=== PATIENT | female | born 1965 | race Two or more races ===

== ENCOUNTER 2018-09-06 20:00 | Emergency (ER) | payer MEDICAID ==
[~2018-09-06] VITALS: Ht 160 cm; Wt 87.1 kg
[2018-09-06] MEDS ORDERED: cloNIDine HCL 0.1 MG TAB ONE (20:52)
[2018-09-06] MEDS ORDERED: cloNIDine HCL 0.1 MG TAB PO ONE (21:00)
[2018-09-07 01:23] VITALS: BP 157/76
[2018-09-07] MEDS ORDERED: ACETAMINOPHEN/CODEINE#3 (300/30mg) TAB PO ONE (02:30)
== END 2018-09-07 03:08 | disposition home or self-care (01) ==
LOC: ER 20:08
DX: S52.601A Unspecified fracture of lower end of right ulna, initial encounter for closed fracture (principal); R51 Headache; E11.9 Type 2 diabetes mellitus without complications; E78.5 Hyperlipidemia, unspecified; I10 Essential (primary) hypertension; W01.0XXA Fall on same level from slipping, tripping and stumbling without subsequent striking against object, initial encounter; Y93.01 Activity, walking, marching and hiking; Y92.89 Other specified places as the place of occurrence of the external cause; Y99.8 Other external cause status
CPT/HCPCS: 29125; 73090; 73110; 73130

== ENCOUNTER 2018-10-13 12:01 | Emergency (ER) | payer MEDICAID ==
[~2018-10-13] VITALS: Ht 160 cm; Wt 86.2 kg
[2018-10-13 13:20] VITALS: BP 162/80
== END 2018-10-13 13:39 | disposition home or self-care (01) ==
LOC: ER 12:01
DX: S33.5XXA Sprain of ligaments of lumbar spine, initial encounter (principal); M54.2 Cervicalgia; E78.5 Hyperlipidemia, unspecified; I10 Essential (primary) hypertension; E11.9 Type 2 diabetes mellitus without complications; Z88.6 Allergy status to analgesic agent; V43.52XA Car driver injured in collision with other type car in traffic accident, initial encounter; Y93.89 Activity, other specified; Y92.488 Other paved roadways as the place of occurrence of the external cause; Y99.8 Other external cause status
CPT/HCPCS: 72100

== ENCOUNTER 2019-03-08 09:12 | Emergency (ER) | payer MEDICAID ==
[~2019-03-08] VITALS: Ht 160 cm; Wt 86.2 kg
[2019-03-08 09:18] VITALS: BP 120/71
== END 2019-03-08 11:42 | disposition home or self-care (01) ==
LOC: ER 09:12
DX: D17.1 Benign lipomatous neoplasm of skin and subcutaneous tissue of trunk (principal); E11.9 Type 2 diabetes mellitus without complications; E78.5 Hyperlipidemia, unspecified; I10 Essential (primary) hypertension; Z88.8 Allergy status to other drugs, medicaments and biological substances

== ENCOUNTER 2019-03-30 10:28 | Emergency (ER) | payer MEDICAID ==
[~2019-03-30] VITALS: Ht 160 cm; Wt 87.1 kg
[2019-03-30 10:36] VITALS: BP 107/68
[2019-03-30] MEDS ORDERED: LIDOCAINE 1% HCL (LOCAL ANESTH.) INJ 20ML MDV IJ ONE (12:00)
== END 2019-03-30 12:50 | disposition home or self-care (01) ==
LOC: ER 10:28
DX: L02.213 Cutaneous abscess of chest wall (principal); E11.9 Type 2 diabetes mellitus without complications; E78.5 Hyperlipidemia, unspecified; I10 Essential (primary) hypertension; Z88.8 Allergy status to other drugs, medicaments and biological substances
CPT/HCPCS: 10060; 99283; J2001

== ENCOUNTER 2019-04-01 08:27 | Emergency (ER) | payer MEDICAID ==
[~2019-04-01] VITALS: Ht 160 cm; Wt 87.1 kg
[2019-04-01 08:52] VITALS: BP 124/64
== END 2019-04-01 09:58 | disposition home or self-care (01) ==
LOC: ER 08:27
DX: Z48.01 Encounter for change or removal of surgical wound dressing (principal); E11.9 Type 2 diabetes mellitus without complications; E78.5 Hyperlipidemia, unspecified; I10 Essential (primary) hypertension; Z88.8 Allergy status to other drugs, medicaments and biological substances

== ENCOUNTER 2019-04-19 14:36 | Emergency (ER) | payer MEDICAID ==
[~2019-04-19] VITALS: Ht 160 cm; Wt 85.7 kg
[2019-04-19 14:54] VITALS: BP 136/68
== END 2019-04-19 17:57 | disposition home or self-care (01) ==
LOC: ER 14:36
DX: M79.662 Pain in left lower leg (principal); E11.22 Type 2 diabetes mellitus with diabetic chronic kidney disease; I12.9 Hypertensive chronic kidney disease with stage 1 through stage 4 chronic kidney disease, or unspecified chronic kidney disease; N18.9 Chronic kidney disease, unspecified; E78.5 Hyperlipidemia, unspecified
CPT/HCPCS: 93971

== ENCOUNTER 2019-09-11 13:39 | Emergency (ER) | payer MEDICAID ==
[~2019-09-11] VITALS: Ht 160 cm; Wt 81.6 kg
[2019-09-11 16:13] VITALS: BP 132/60
[2019-09-11] MEDS ORDERED: ACETAMINOPHEN/CODEINE#3 (300/30mg) TAB PO ONE (16:30)
== END 2019-09-11 18:33 | disposition home or self-care (01) ==
LOC: ER 13:39
DX: M84.472A Pathological fracture, left ankle, initial encounter for fracture (principal); E11.22 Type 2 diabetes mellitus with diabetic chronic kidney disease; I12.9 Hypertensive chronic kidney disease with stage 1 through stage 4 chronic kidney disease, or unspecified chronic kidney disease; N18.9 Chronic kidney disease, unspecified; I10 Essential (primary) hypertension
CPT/HCPCS: 29515; 73610; 73630; 73700; 93971

== ENCOUNTER 2021-11-11 19:49 | Inpatient (IN) | payer MEDICARE, MEDICAID ==
[~2021-11-11] VITALS: Ht 160 cm; Wt 119.0 kg
[2021-11-11 22:30] LABS: Urine Bacteria FEW /hpf (None Seen); Urine Blood TRACE /uL (Negative); Urine Hyaline Cast FEW /lpf (0 - 2); Urine WBC 1 /hpf (0 - 5)
[2021-11-11 22:46] LABS: Basophils # (auto) 0.1 10 ^3/uL (0-0.2); Eosinophils # (auto) 0.2 10 ^3/uL (0-0.8); Eosinophils % (auto) 3.9 % (0.0-7.0); Hematocrit 34.7 % (36.0-46.0); Hemoglobin 11.3 g/dL (12.2-16.2); Lymphocytes # (auto) 1.4 10 ^3/uL (0.4-5.4); Lymphocytes % (auto) 26.2 % (10.0-50.0); Mean Corpuscular Hemoglobin 30.6 pg (28.0-32.0); Mean Corpuscular Hgb Conc. 32.6 g/dL (32.0-36.0); Mean Corpuscular Volume 93.9 fL (80.0-100.0); Monocytes # (auto) 0.4 10 ^3/uL (0-1.3); Neutrophils # (auto) 3.3 10 ^3/uL (1.6-8.6); Neutrophils % (auto) 60.9 % (37.0-80.0); Nucleated Red Blood Cells % 0.1 %; Red Cell Distribution Width 13.6 % (11.8-14.3); White Blood Cell 5.5 10^3/uL (4.4-10.8)
[2021-11-11 23:01] LABS: BUN/Creatinine Ratio 12.9; Magnesium 2.7 mg/dL (1.6-2.6); Potassium 4.9 mmol/L (3.5-5.1)
[2021-11-11 23:04] LABS: Bilirubin, Total 0.3 mg/dL (0.2-1.0); Total Protein 6.2 g/dL (6.4-8.2)
[2021-11-12] MEDS ORDERED: CALCIUM CARB 500 MG CHEW TAB PO ONE (08:00)
[2021-11-12] MEDS ORDERED: ACETAMINOPHEN 325 MG TAB PO PRN (08:00)
[2021-11-12] MEDS ORDERED: MORPHINE SULFATE INJ 2 MG/ml SYRG IV PRN ×2 (08:00)
[2021-11-12] MEDS ORDERED: NITROGLYCERIN 0.4 MG SL TAB SL PRN (08:00)
[2021-11-12] MEDS ORDERED: ONDANSETRON HCL 4 MG/2 ML VIAL IV PRN (08:00)
[2021-11-12] MEDS ORDERED: DOCUSATE SOD 100 MG CAP PO PRN (08:00)
[2021-11-12] MEDS: B-COMPLEX W/ C & FOLIC ACID(NEPHROVITE TAB) PO SCH ×2 (09:09→22:22)
[2021-11-12] MEDS ORDERED: DEXTROSE (50%) 50ML SYRG IV PRN (10:00)
[2021-11-12 11:04] LABS: Cholesterol 201 mg/dL (< 200)
[2021-11-12 11:07] LABS: HDL Cholesterol 127 mg/dL (40-59); LDL Cholesterol 67 mg/dL (< 100); Triglycerides 116 mg/dL (< 150)
[2021-11-12] MEDS: ACCU-CHEK COMFORT CURVE STRIP VI SCH ×3 (12:02→22:27)
[2021-11-12] MEDS: InsuLIN REG 1unit/0.01ml Soln (100units/ml) SC SCH ×3 (12:02→22:28)
[2021-11-12] MEDS ORDERED: BACLOFEN 10 MG TAB PO PRN (16:30)
[2021-11-12] MEDS: HYDROcodone-ACET 5/325MG TAB PO PRN (19:13)
[2021-11-12] MEDS: hydrALAZINE HCL 25 MG TAB PO PRN (20:06)
[2021-11-13 00:48] VITALS: BP 191/101
[2021-11-13] MEDS: hydrALAZINE HCL 25 MG TAB PO PRN ×2 (02:09→09:01)
[2021-11-13] MEDS: SODIUM BICARBONATE 650 MG TAB PO SCH ×2 (05:11→13:18)
[2021-11-13 05:13] VITALS: BP 190/89
[2021-11-13] MEDS: ACCU-CHEK COMFORT CURVE STRIP VI SCH ×2 (06:07→11:46)
[2021-11-13] MEDS: InsuLIN REG 1unit/0.01ml Soln (100units/ml) SC SCH ×2 (06:08→12:23)
[2021-11-13 07:11] LABS: Basophils # (auto) 0.1 10 ^3/uL (0-0.2); Basophils % (auto) 0.9 % (0.0-2.0); Eosinophils # (auto) 0.3 10 ^3/uL (0-0.8); Eosinophils % (auto) 4.4 % (0.0-7.0); Hematocrit 36.2 % (36.0-46.0); Hemoglobin 11.8 g/dL (12.2-16.2); Lymphocytes # (auto) 1.7 10 ^3/uL (0.4-5.4); Lymphocytes % (auto) 29.9 % (10.0-50.0); Mean Corpuscular Hemoglobin 30.8 pg (28.0-32.0); Mean Corpuscular Hgb Conc. 32.5 g/dL (32.0-36.0); Mean Corpuscular Volume 94.8 fL (80.0-100.0); Monocytes # (auto) 0.4 10 ^3/uL (0-1.3); Monocytes % (auto) 7.7 % (0.0-12.0); Neutrophils # (auto) 3.2 10 ^3/uL (1.6-8.6); Neutrophils % (auto) 57.1 % (37.0-80.0); Red Blood Cells 3.82 10^6/uL (4.0-5.20); Red Cell Distribution Width 13.8 % (11.8-14.3); White Blood Cell 5.7 10^3/uL (4.4-10.8)
[2021-11-13 07:38] LABS: Albumin 2.9 g/dL (3.4-5.0); Calcium 7.7 mg/dL (8.5-10.1)
[2021-11-13 07:42] LABS: BUN/Creatinine Ratio 12.5; Bilirubin, Total 0.2 mg/dL (0.2-1.0); Total Protein 6.3 g/dL (6.4-8.2)
[2021-11-13 08:38] VITALS: BP 173/80
[2021-11-13] MEDS: CALCIUM ACETATE 667 MG CAP PO SCH ×2 (08:59→11:53)
[2021-11-13] MEDS: HYDROcodone-ACET 5/325MG TAB PO PRN (08:59)
[2021-11-13] MEDS: B-COMPLEX W/ C & FOLIC ACID(NEPHROVITE TAB) PO SCH (08:59)
[2021-11-13] MEDS ORDERED: amLODIPine BESYLATE 5 MG TAB PO ONE (09:30)
[2021-11-13] MEDS ORDERED: NITROGLYCERIN 0.2MG/HR TOPICAL PATCH TD SCH (10:00)
[2021-11-13] MEDS ORDERED: LOSARTAN POTASSIUM 25 MG TAB PO SCH (10:00)
[2021-11-13] MEDS ORDERED: NITROGLYCERIN 0.4MG/HR TOPICAL PATCH TD SCH (10:00)
[2021-11-13] MEDS ORDERED: SODIUM ZIRCONIUM CYCL 10 GM PAK PO ONE (11:30)
[2021-11-13] MEDS ORDERED: CALC500C66 PO ×2 (11:38→15:14)
[2021-11-13] MEDS ORDERED: hydrALAZINE HCL 25 MG TAB PO SCH (12:00)
[2021-11-13 12:30] VITALS: BP 154/71
[2021-11-13 14:00] VITALS: BP 154/71
== END 2021-11-13 16:58 | disposition home or self-care (01) | DRG 917 ==
LOC: ER 19:51 → TELE 11-12 08:07 → TELE-WESTW 11-12 23:25
PROVIDERS: ADMIT Family Medicine; ATTEND Student in an Organized Health Care Education/Training Program
DX: T40.2X1A Poisoning by other opioids, accidental (unintentional), initial encounter (principal); G92.9 Unspecified toxic encephalopathy; N18.6 End stage renal disease; E46 Unspecified protein-calorie malnutrition; Z68.42 Body mass index [BMI] 45.0-49.9, adult; I12.0 Hypertensive chronic kidney disease with stage 5 chronic kidney disease or end stage renal disease; R55 Syncope and collapse; Z20.822 Contact with and (suspected) exposure to COVID-19; E88.09 Other disorders of plasma-protein metabolism, not elsewhere classified; E83.39 Other disorders of phosphorus metabolism; E83.42 Hypomagnesemia; E83.51 Hypocalcemia; E10.22 Type 1 diabetes mellitus with diabetic chronic kidney disease; R80.9 Proteinuria, unspecified; E10.65 Type 1 diabetes mellitus with hyperglycemia; E10.40 Type 1 diabetes mellitus with diabetic neuropathy, unspecified; M14.679 Charcot's joint, unspecified ankle and foot; Z79.899 Other long term (current) drug therapy; Z82.49 Family history of ischemic heart disease and other diseases of the circulatory system; Z88.8 Allergy status to other drugs, medicaments and biological substances; Z79.4 Long term (current) use of insulin
CPT/HCPCS: 36415; 70450; 71045; 76775; 80053; 80061; 81001; 82962; 83036; 83735; 83880; 84100; 84443; 84484; 85025; 93005; 93306; 93886; G0378; J1815

== ENCOUNTER 2021-12-22 19:36 | Inpatient (IN) | payer MEDICARE, MEDICAID ==
[~2021-12-22] VITALS: Ht 167.6 cm; Wt 80.5 kg
[~2021-12-22 19:36] MED LIST: CALC500C66 PO
[2021-12-22 21:11] LABS: Basophils # (auto) 0.1 10 ^3/uL (0-0.2); Basophils % (auto) 0.7 % (0.0-2.0); Eosinophils # (auto) 0.1 10 ^3/uL (0-0.8); Eosinophils % (auto) 1.5 % (0.0-7.0); Hematocrit 39.8 % (36.0-46.0); Hemoglobin 13.3 g/dL (12.2-16.2); Lymphocytes # (auto) 1.7 10 ^3/uL (0.4-5.4); Lymphocytes % (auto) 22.2 % (10.0-50.0); Mean Corpuscular Hemoglobin 31.6 pg (28.0-32.0); Mean Corpuscular Hgb Conc. 33.4 g/dL (32.0-36.0); Mean Corpuscular Volume 94.8 fL (80.0-100.0); Monocytes # (auto) 0.4 10 ^3/uL (0-1.3); Monocytes % (auto) 5.7 % (0.0-12.0); Neutrophils # (auto) 5.4 10 ^3/uL (1.6-8.6); Neutrophils % (auto) 69.9 % (37.0-80.0); Nucleated Red Blood Cells % 0.1 %; Red Cell Distribution Width 13.4 % (11.8-14.3); White Blood Cell 7.8 10^3/uL (4.4-10.8)
[2021-12-22 21:22] LABS: Alkaline Phosphatase 109 U/L (45-117); Anion Gap 9 (5-15); Aspartate Aminotransferase 12 U/L (15-37); BUN/Creatinine Ratio 11.7; Bilirubin, Total 0.3 mg/dL (0.2-1.0); Blood Alcohol < 3.0 mg/dL (0-5); Blood Urea Nitrogen 67 mg/dL (7-18); Calcium 7.4 mg/dL (8.5-10.1); Carbon Dioxide 22 mmol/L (21-32); Chloride 115 mmol/L (98-107); GFR African American 10 mL/min; GFR Non-African American 8 mL/min; Glucose 126 mg/dL (74-106); Magnesium 2.5 mg/dL (1.6-2.6); Potassium 4.2 mmol/L (3.5-5.1); Sodium 146 mmol/L (136-145); Total Protein 6.7 g/dL (6.4-8.2)
[2021-12-22 21:30] LABS: INR 0.98 (0.9-1.15); Partial Thromboplastin Time 34.7 sec (24.6-33.4)
[2021-12-22 21:36] LABS: Alanine Aminotransferase 19 U/L (13-56)
[2021-12-22] MEDS ORDERED: hydrALAZINE HCL 20 MG/ML VL IV ONE (22:15)
[2021-12-23] MEDS ORDERED: AZITHROMYCIN 500MG/ 250ML 250 ML IV ONE (01:00)
[2021-12-23] MEDS ORDERED: cefTRIAXone 1GM/50ML D5W 50 ML IV ONE (01:00)
[2021-12-23 05:15] LABS: Urine Bacteria MANY /hpf (None Seen); Urine Blood TRACE /uL (Negative); Urine Mucus FEW (None Seen); Urine Specific Gravity 1.011 (1.001-1.035); Urine WBC 4 /hpf (0 - 5)
[2021-12-23 05:19] LABS: Alcohol, Urine < 3.0 mg/dL (0-10); Amphetamine Screen, Urine NEGATIVE (NEGATIVE); Barbiturate Scree,Urine NEGATIVE (NEGATIVE); Benzodiazephine Screen, Urine NEGATIVE (NEGATIVE); Cannabinoid Screen, Urine NEGATIVE (NEGATIVE); Cocaine Screen, Urine NEGATIVE (NEGATIVE); Opiate Scree,Urine NEGATIVE (NEGATIVE); Phencyclidine Screen, Urine NEGATIVE (NEGATIVE)
[2021-12-23] MEDS ORDERED: DEXTROSE (50%) 50ML SYRG IV PRN (06:15)
[2021-12-23] MEDS ORDERED: ONDANSETRON HCL 4 MG/2 ML VIAL IV PRN (06:15)
[2021-12-23] MEDS: InsuLIN REG 1unit/0.01ml Soln (100units/ml) SC SCH ×4 (06:58→22:51)
[2021-12-23] MEDS: ACCU-CHEK COMFORT CURVE STRIP VI SCH ×4 (06:58→22:00)
[2021-12-23] MEDS: PANTOPRAZOLE 40 MG TAB PO SCH (09:36)
[2021-12-23] MEDS: SERTRALINE HCL 50 MG TAB PO SCH (09:37)
[2021-12-23] MEDS: METOPROLOL TARTRATE 25 MG TAB PO SCH ×2 (09:37→22:45)
[2021-12-23] MEDS ORDERED: MAGNESIUM OXIDE 400 MG TAB PO SCH (10:00)
[2021-12-23] MEDS ORDERED: LOSARTAN POTASSIUM 50 MG TAB PO SCH (10:00)
[2021-12-23] MEDS ORDERED: SOD CHL 0.45% 1,000 ML IV SCH (13:00)
[2021-12-23] MEDS: cloNIDine HCL 0.1 MG TAB PO PRN (14:11)
[2021-12-23 14:42] LABS: Protein, Urine 581.3 mg/dL (0.0-11.9)
[2021-12-23] MEDS ORDERED: CALCIUM CARB 500 MG CHEW TAB PO ONE (16:30)
[2021-12-23] MEDS ORDERED: FUROSEMIDE 40 MG TAB PO ONE (16:30)
[2021-12-23] MEDS ORDERED: FUROSEMIDE 100 MG/10ML VIAL IV SCH (18:00)
[2021-12-23] MEDS: ACETAMINOPHEN 325 MG TAB PO PRN (20:50)
[2021-12-23] MEDS: CALCIUM CARB 500 MG CHEW TAB PO SCH (22:51)
[2021-12-24] MEDS: cloNIDine HCL 0.1 MG TAB PO PRN ×2 (01:56→04:29)
[2021-12-24] MEDS ORDERED: hydrALAZINE HCL 20 MG/ML VL IV ONE (03:30)
[2021-12-24 03:45] LABS: Basophils # (auto) 0.1 10 ^3/uL (0-0.2); Basophils % (auto) 1.1 % (0.0-2.0); Eosinophils # (auto) 0.2 10 ^3/uL (0-0.8); Eosinophils % (auto) 2.7 % (0.0-7.0); Hematocrit 34.4 % (36.0-46.0); Hemoglobin 11.6 g/dL (12.2-16.2); Lymphocytes # (auto) 2.4 10 ^3/uL (0.4-5.4); Lymphocytes % (auto) 27.7 % (10.0-50.0); Mean Corpuscular Hemoglobin 31.6 pg (28.0-32.0); Mean Corpuscular Hgb Conc. 33.7 g/dL (32.0-36.0); Mean Corpuscular Volume 93.8 fL (80.0-100.0); Monocytes # (auto) 0.7 10 ^3/uL (0-1.3); Monocytes % (auto) 7.6 % (0.0-12.0); Neutrophils # (auto) 5.3 10 ^3/uL (1.6-8.6); Neutrophils % (auto) 60.9 % (37.0-80.0); Red Blood Cells 3.67 10^6/uL (4.0-5.20); White Blood Cell 8.6 10^3/uL (4.4-10.8)
[2021-12-24 03:58] LABS: Albumin 2.6 g/dL (3.4-5.0); Calcium 7.5 mg/dL (8.5-10.1); Potassium 4.2 mmol/L (3.5-5.1)
[2021-12-24 04:00] LABS: BUN/Creatinine Ratio 10.9
[2021-12-24] MEDS ORDERED: cefTRIAXone 1GM/50ML D5W 50 ML IV SCH (04:00)
[2021-12-24 04:03] LABS: Bilirubin, Total 0.4 mg/dL (0.2-1.0); Total Protein 6.3 g/dL (6.4-8.2)
[2021-12-24 04:18] VITALS: BP 168/79
[2021-12-24] MEDS: ACETAMINOPHEN 325 MG TAB PO PRN (04:29)
[2021-12-24] MEDS ORDERED: LOVA20TA4 PO (04:53)
[2021-12-24] MEDS ORDERED: HYDR25TA4 PO (04:53)
[2021-12-24] MEDS ORDERED: GABA300C PO (04:53)
[2021-12-24] MEDS ORDERED: ZOLP5TAB5 PO (04:53)
[2021-12-24] MEDS ORDERED: TRAM50TA2 PO (04:53)
[2021-12-24 05:00] VITALS: BP 149/74
[2021-12-24] MEDS: InsuLIN REG 1unit/0.01ml Soln (100units/ml) SC SCH ×4 (06:09→17:41)
[2021-12-24] MEDS: ACCU-CHEK COMFORT CURVE STRIP VI SCH ×4 (06:13→17:36)
[2021-12-24 06:32] LABS: Urine Bacteria MOD /hpf (None Seen); Urine Blood 1+ /uL (Negative); Urine Specific Gravity 1.009 (1.001-1.035); Urine WBC 23 /hpf (0 - 5)
[2021-12-24 08:25] VITALS: BP 143/65
[2021-12-24] MEDS ORDERED: FUROSEMIDE 40 MG TAB PO SCH (10:00)
[2021-12-24] MEDS: SERTRALINE HCL 50 MG TAB PO SCH (10:36)
[2021-12-24] MEDS: PANTOPRAZOLE 40 MG TAB PO SCH (10:37)
[2021-12-24] MEDS: METOPROLOL TARTRATE 25 MG TAB PO SCH (10:37)
[2021-12-24] MEDS: CALCIUM CARB 500 MG CHEW TAB PO SCH (10:37)
[2021-12-24 12:33] VITALS: BP 135/61
[2021-12-24 16:28] VITALS: BP 148/68
[2021-12-25 11:05] LABS: Hepatitis C Antibody Negative (Negative)
== END 2021-12-24 18:37 | disposition home or self-care (01) | DRG 91 ==
LOC: EDBD 19:36 → ER 19:39 → OVERFLOW 12-23 06:01 → WEST WING 12-24 04:00
PROVIDERS: ADMIT Nurse Practitioner; ATTEND Student in an Organized Health Care Education/Training Program
DX: G92.8 Other toxic encephalopathy (principal); E43 Unspecified severe protein-calorie malnutrition; E87.0 Hyperosmolality and hypernatremia; N39.0 Urinary tract infection, site not specified; N17.9 Acute kidney failure, unspecified; N18.4 Chronic kidney disease, stage 4 (severe); I67.4 Hypertensive encephalopathy; T40.425A Adverse effect of tramadol, initial encounter; D63.1 Anemia in chronic kidney disease; E11.649 Type 2 diabetes mellitus with hypoglycemia without coma; E11.65 Type 2 diabetes mellitus with hyperglycemia; Z20.822 Contact with and (suspected) exposure to COVID-19; E11.22 Type 2 diabetes mellitus with diabetic chronic kidney disease; E11.40 Type 2 diabetes mellitus with diabetic neuropathy, unspecified; E11.610 Type 2 diabetes mellitus with diabetic neuropathic arthropathy; E78.5 Hyperlipidemia, unspecified; R09.89 Other specified symptoms and signs involving the circulatory and respiratory systems; E87.8 Other disorders of electrolyte and fluid balance, not elsewhere classified; I12.9 Hypertensive chronic kidney disease with stage 1 through stage 4 chronic kidney disease, or unspecified chronic kidney disease; I16.0 Hypertensive urgency; Z68.28 Body mass index [BMI] 28.0-28.9, adult; Z88.5 Allergy status to narcotic agent; Z88.8 Allergy status to other drugs, medicaments and biological substances; Z82.49 Family history of ischemic heart disease and other diseases of the circulatory system; Z79.899 Other long term (current) drug therapy
CPT/HCPCS: 36415; 36600; 70450; 71045; 74176; 76775; 80053; 80307; 80320; 81001; 82306; 82570; 82805; 82962; 83605; 83735; 83880; 83935; 83970; 84156; 84300; 84484; 85025; 85610; 85730; 86803; 87040; 87340; 87426; 87804; 93005; 96365; 96366; 96368; 96375; G0378; J0696; J1815

== ENCOUNTER 2024-06-08 13:15 | Emergency (ER) | payer MEDICAID, MEDICARE, OTHER ==
[~2024-06-08] VITALS: Ht 160 cm; Wt 74.3 kg
[~2024-06-08 13:15] MED LIST changes: +GABA300C PO; +HYDR25TA4 PO; +LOVA20TA4 PO; +TRAM50TA2 PO; +ZOLP5TAB5 PO
--- NOTE | 2024-06-08 14:16 | DVH ---
EXAM: XY R KNEE 3V XRAY CLINICAL INDICATION: FSLL INJURY TECHNIQUE: XY R KNEE 3V XRAY Comparison: None FINDINGS/IMPRESSION: Nondisplaced inferior patellar pole fracture. Moderate joint effusion. diffuse soft tissue swelling
--- NOTE | 2024-06-08 15:00 | ED.PDOC ---
Musculoskeletal HPI Comments A 58 YEAR OLD FEMALE PRESENTS TO THE ED WITH CHIEF COMPLAINT OF RIGHT KNEE PAIN S/P FALL. PATIENT REPORTS THAT SHE WAS GETTING OUT OF HER BATHROOM EARLIER TODAY WHEN SHE HAD ACCIDENTALLY TRIPPED OVER A BOX, CAUSING HER TO LAND ON HER RIGHT KNEE ON THE [place]. PATIENT RELAYS THAT THERE IS NOW PAIN WITH ASSOCIATE D SWELLING TO HER RIGHT KNEE. PATIENT DENIES ANY HEAD INJURY, N/V, NUMBNESS, OR WEAKNESS.NO OTHER SYMPTOMS REPORTED AT THIS TIME OF CARE. Chief Complaint: Lower Extremity Time Seen by MD: 14:52 Primary Care Provider: ALLYSON Reviewed Notes: Nurses Notes, Medications, Allergies Allergies: Coded Allergies: Codeine (Verified Allergy, Unknown, 12/22/21) Lisinopril (Verified Allergy, Unknown, 10/13/18) Home Meds Active Scripts Indomethacin (Indomethacin) 50 Mg Cap, 1 CAP PO TID, #30 CAP Prov:MATHEW YEN 06/08/24 Ciprofloxacin Hcl (Cipro) 500 Mg Tab, 1 TAB PO BID, #20 TAB Prov:MATHEW YEN 06/08/24 Calcium Carbonate (Calcium Carbonate) 500 Mg Chw, 500 MG PO BID for 30 Days, #60 TAB.CHEW Prov:JOE CORRAL MD 11/13/21 Reported Medications Zolpidem Tartrate (Zolpidem Tartrate) 5 Mg Tab, 1 TAB PO QPM, #30 TAB 2 Refills 12/24/21 Gabapentin (Neurontin) 300 Mg Cap, 1 CAP PO BID, #90 CAP 3 Refills 12/24/21 Hydrochlorothiazide (Hydrochlorothiazide) 25 Mg Tab, 25 MG PO DAILY for 30 Days, MG 12/24/21 Tramadol Hcl (Tramadol Hcl) 50 Mg Tab, 50 MG PO DAILY PRN for MODERATE PAIN (4-6 PAIN SCALE), MG 12/24/21 Lovastatin (Lovastatin) 20 Mg Tab, 1 TAB PO DAILY, #30 TAB 5 Refills 12/24/21 Information Source: Patient Mode of Arrival: Ambulatory Location: Right Extremity Location: Knee Timing: Hours Prehospital treatment: None Severity: Moderate Able to Move Extremity: No Bear Weight: Limited Pain: Moderate Mechanism: Blunt Trauma Circumstances: Fall Onset of Symptoms: After Trauma Symptoms: Swelling, Pain DVT Risk Factors: NONE Last Tetanus: UTD Associated signs and symptoms: Knee pain Past Medical History PAST MEDICAL HISTORY: CKF, DM, High Lipids, HTN Surgical History: , Tonsillectomy 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 History Family History Family History: Family hx of HTN Social History Smoker: Non-Smoker Alcohol: Rarely Drugs: Denies Drug Use Lives In: Home Constitutional: denies: chills, diaphoresis, fatigue, fever, malaise, sweats, weakness, others EENTM: denies: blurred vision, double vision, ear bleeding, ear discharge, ear drainage, ear pain, ear ringing, eye pain, eye redness, hearing loss, mouth pain, mouth swelling, nasal discharge, nose bleeding, nose congestion, nose pain, photophobia, tearing, throat pain, throat swelling, voice changes, others Respiratory: denies: cough, hemoptysis, orthopnea, SOB at rest, shortness of breath, SOB with excertion, stridor, wheezing, others Cardiovascular: denies: chest pain, dizzy spells, diaphoresis, Dyspnea on e xertion, edema, irregular heart beat, left arm pain, lightheadedness, palpitations, PND, syncope, others Gastrointestinal: denies: abdomen distended, abdominal pain, blood streaked bowels, constipated, diarrhea, dysphagia, difficulty swallowing, hematemesis, melena, nausea, poor appetite, poor fluid intake, rectal bleeding, rectal pain, vomiting, others Genitourinary: denies: abnormal vagina bleeding, burning, dyspareunia, dysuria, flank pain, frequency, hematuria, incontinence, pain, , vagina discharge, urgency, others Neurological: denies: dizziness, fainting, headache, left sided numbness, left sided weakness, numbness, paresthesia, pre-existing deficit, right sided numbness, right sided weakness, seizure, speech problems, tingling, tremors, weakness, others Musculoskeletal: reports: joint pain, joint swelling, others (RT KNEE PAIN); denies: back pain, gout, muscle pain, muscle stiffness, neck pain Integumetry: denies: bruises, change in color, change in hair/nails, dryness, laceration, lesions, lumps, rash, wounds, others Allergic/Immunocompromised: denies: Difficulty Healing, Frequent Infections, Hives, Itching, others Hematologic/Lymphatic: denies: anemia, blood clots, easy bleeding, easy bruising, swollen glands, others Endocrine: denies: excessive hunger, excessive sweating, excessive thirst, excessive urination, flushing, intolerance to cold, intolerance to heat, unexplained weight gain, unexplained weight loss, others Psychiatric: denies: anxiety, bipolar disorder, depression, hopeless, panic disorder, schizophrenia, sleepless, suicidal, others All Other Systems: Reviewed and Negative Physical Exam General Appearance: No Apparent Distress, Normal HEENT: Normal ENT Inspection, PERRL/EOMI Neck: Full Range of Motion, Non-Tender, Normal, Normal Inspection Respiratory: Chest Non-Tender, Lungs Clear, No Accessory Muscle Use, No Respiratory Distress, Normal Breath Sounds Cardiovascular: No Edema, No JVD, No Murmur, No Gallop, Normal Peripheral Pulses, Regular Rate/Rhythm Breast Exam: Deferred Gastrointestinal: No Organomegaly, Non Tender, No Pulsatile Mass, Normal Bowel Sounds, Soft Genitalia: Deferred Pelvic: Deferred Rectal: Deferred Extremities: Decreased range of motion, No calf tenderness, Normal capillary refill, No pedal edema, Swelling (BONY TENDERNESS AND SWELLING ON RIGHT ANTERIOR KNEE, NO DEFORMITY. ), Tender (AND SWELLING ON RIGHT ANTERIOR KNEE, NO OPEN WOUND AND DEFORMITY. ) Musculoskeletal : Apperance: Normal Neurologic: Alert, art department head II-XII nml as Tested, No Motor Deficits, Normal Affect, Normal Mood, No Sensory Deficits Cerebellar Function: Normal Reflexes: Normal Skin: Dry, Normal Color, Warm Peripheral Pulses: 2+ carotid (R), 2+ carotid (L), 2+ dorsalis pedis (R), 2+ dorsalis pedis (L) Lymphatic: No Adenopathy Was a procedure done? Was a procedure done?: No Differential Diagnosis EXT Differential Diagnosis: Fracture, Sprain, Dislocation, Contusion, Strain, Bursitis X-Ray, Labs, Meds, VS Vital Signs Date Time Temp Pulse Resp B/P (MAP) Pulse Ox O2 Delivery O2 Flow Rate FiO2 06/08/24 13:25 98.0 81 18 147/73 (97) 96 98.0 Current Medications Medications (Trade) Dose Ordered Sig/Altagracia Route Start Time Stop Time Status Last Admin Acetaminophen/ Hydrocodone Bitart (B[place]er 5/325MG Tab) 1 tab ONCE ONCE PO 06/08/24 15:00 06/08/24 15:01 DC 06/08/24 15:07 PATIENT: KAT LANGLEYCT: [id number]: [id number] : 1965 LOC: ER ROOM / BED: / AGE / SEX: 58 / F ADM STATUS: REG ER SERVICE 1339 ORDERING PHYSICIAN: MATHEW YEN PROCEDURE(s): RKN3 - R KNEE 3V XRAY REASON: FSLL INJURY ORDER NUMBER(s): [id number], ACCESSION NUMBER(s): [id number] EXAM: XY R KNEE 3V XRAY CLINICAL INDICATION: FSLL INJURY TECHNIQUE: XY R KNEE 3V XRAY Comparison: None FINDINGS/IMPRESSION: Nondisplaced inferior patellar pole fracture. Moderate joint effusion. diffuse soft tissue swelling ATED BY: STEVEN RECINOS MD DICTATED DATE/TIME: 06/08/241413 SIGNED BY: STEVEN RECINOS MD SIGNED DATE/TIME: 06/08/24 141 X-Ray, Labs, Meds, VS Comment EXTERNAL MEDICAL RECORDS REVIEWED: [NONE] INDEPENDENT HISTORIANS: [NONE] SOCIAL DETERMINANTS OF HEALTH: [NONE] LABS ORDERED: NONE REVIEWED AND INTERPRETED RESULTS: RT KNEE XR IMAGING ORDERED: RT KNEE XR TREATMENTS ORDERED: NORCO 5/325 PO AND RIGHT KNEE IMMOBILIZATION AND CRUTCHES PROCEDURES PERFORMED: NONE CRITICAL CARE TIME: NONE I HAVE DISCUSSED THE PATIENT WITH THE ATTENDING PHYSICIAN DR. GALLO AND HE AGREES WITH THE PATIENT'S PLAN OF CARE AND DISPOSITION. BASED ON HISTORY OF PRESENT ILLNESS, AND PHYSICAL EXAM, PATIENT WILL BE DISCHARGED HOME. DISCUSSED PLAN FOR DISCHARGE HOME. SHARED DECISION MAKING: DISCUSSED WITH PATIENT THAT THEIR WORKUP WAS NORMAL. PATIENT INSTRUCTED TO FOLLOW UP WITH PRIMARY CARE PROVIDER IN 1-2 DAYS FOR RE- EVALUATION OF SYMPTOMS. PATIENT VERBALIZES UNDERSTANDING TO RETURN TO ED FOR NEW OR WORSENING SYMPTOMS OR IF FOLLOW UP WITH PCP CANNOT BE OBTAINED. PATIENT FEELS COMFORTABLE GOING HOME AT THIS TIME. ALL QUESTIONS ADDRESSED AT TIME OF DISCHARGE. Time of 1ST Reevaluation: 15:20 Reevaluation 1ST: Improved Patient Education/Counseling: Diagnosis, Treatment, Need For Follow Up Family Education/Counseling: Diagnosis, Treatment, Need For Follow Up Medical Screening: No EMC Exist At This Time Departure 1 Departure Time of Disposition: 15:30 Impression: Primary Impression: Right patella fracture Qualified Codes: S82.034A - Nondisplaced transverse fracture of right patella, initial encounter for closed fracture Disposition: 01 HOME / SELF CARE / HOMELESS Condition: Stable Additional Instructions: F/U ORTHOPEDIST IN 2 DAYS RECHECK. IF CONDITION BECOME WORSE, RETURN TO ED TERRI. Discharged With: Self, Relative Critical Care Note Critical Care Time?: No Stability Stability form required: No Heart Score Heart Score: Heart Score Response (Comments) Value History N/A 0 EKG N/A 0 Age N/A 0 Risk Factors N/A 0 Troponin N/A 0 Total 0 I personally scribed for MATHEW YEN ([email or web address]) on 06/08/24 at 15:00. Electronically submitted by Vahe Hobbs ([email or web address]). MATHEW YEN June 08, 2024 15:00
[2024-06-08] MEDS: HYDROcodone-ACET 5/325MG TAB PO ONE (15:07)
[2024-06-08] MEDS ORDERED: CIPR-173 PO (15:13)
[2024-06-08] MEDS ORDERED: INDO50CA82 PO (15:13)
[2024-06-08 15:18] VITALS: BP 140/76; PULSE 80; RESP 18; TEMP 98.1; O2SAT 97
== END 2024-06-08 15:20 | disposition home or self-care (01) ==
LOC: ER 13:38
DX: S82.001A Unspecified fracture of right patella, initial encounter for closed fracture (principal); M25.561 Pain in right knee; E11.22 Type 2 diabetes mellitus with diabetic chronic kidney disease; I12.9 Hypertensive chronic kidney disease with stage 1 through stage 4 chronic kidney disease, or unspecified chronic kidney disease; N18.9 Chronic kidney disease, unspecified; E78.5 Hyperlipidemia, unspecified; Z79.899 Other long term (current) drug therapy; Z90.89 Acquired absence of other organs; Z98.890 Other specified postprocedural states; Z88.8 Allergy status to other drugs, medicaments and biological substances; Z88.5 Allergy status to narcotic agent; W18.09XA Striking against other object with subsequent fall, initial encounter; Y93.89 Activity, other specified; Y92.89 Other specified places as the place of occurrence of the external cause; Y99.8 Other external cause status
CPT/HCPCS: 73562

== ENCOUNTER 2024-09-27 13:41 | Inpatient (IN) | payer OTHER ==
[~2024-09-27] VITALS: Ht 165.1 cm; Wt 72.8 kg
[2024-09-27 14:11] VITALS: PULSE 72; RESP 10; O2SAT 96
--- NOTE | 2024-09-27 14:31 | ED.PDOC ---
History of Present Illness HPI Comments 58-year-old female with PMHx HTN brought in by EMS presents with a chief complaint of HTN, headache, and ear ringing. Patient states that she was getting dialysis today and staff called 911 due to patient having a blood pressure reading that was in the 200s. Patient states that she finished dialysis and was given Clonidine 0.2mg. Patient states that she gets headaches like this weekly due to her high blood pressure. Chief Complaint: Headache Time Seen by MD: 14: Primary Care Provider: MARCO ANTONIO Reviewed Notes: Medications, Allergies Allergies: Coded Allergies: Codeine (Verified Allergy, Unknown, 12/22/21) Lisinopril (Verified Allergy, Unknown, 10/13/18) Home Meds Active Scripts Calcium Carbonate (Calcium Carbonate) 500 Mg Chw, 500 MG PO BID for 30 Days, #60 TAB.CHEW Prov:JOE CORRAL MD 11/13/21 Reported Medications Zolpidem Tartrate (Zolpidem Tartrate) 5 Mg Tab, 1 TAB PO QPM, #30 TAB 2 Refills 12/24/21 Gabapentin (Neurontin) 300 Mg Cap, 1 CAP PO BID, #90 CAP 3 Refills 12/24/21 Hydrochlorothiazide (Hydrochlorothiazide) 25 Mg Tab, 25 MG PO DAILY for 30 Days, MG 12/24/21 Tramadol Hcl (Tramadol Hcl) 50 Mg Tab, 50 MG PO DAILY PRN for MODERATE PAIN (4-6 PAIN SCALE), MG 12/24/21 Lovastatin (Lovastatin) 20 Mg Tab, 1 TAB PO DAILY, #30 TAB 5 Refills 12/24/21 Information Source: Patient Mode of Arrival: EMS Severity: Moderate Timing: Days Duration: Intermittent 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 Past Medical History PAST MEDICAL HISTORY: CKF, DM, High Lipids, HTN Surgical History: , Tonsillectomy BRUISE TRIMMER History: No Pertinent BRUISE TRIMMER History Family History Family History: Family hx of HTN Social History Smoker: Non-Smoker Alcohol: Rarely Drugs: Denies Drug Use Lives In: Home Constitutional: denies: chills, diaphoresis, fatigue, fever, malaise, sweats, weakness, others EENTM: reports: ear ringing; denies: blurred vision, double vision, ear bleeding, ear discharge, ear drainage, ear pain, eye pain, eye redness, hearing loss, mouth pain, mouth swelling, nasal discharge, nose bleeding, nose congestion, nose pain, photophobia, tearing, throat pain, throat swelling, voice changes, others Respiratory: denies: cough, hemoptysis, orthopnea, SOB at rest, shortness of breath, SOB with excertion, stridor, wheezing, others Cardiovascular: denies: chest pain, dizzy spells, diaphoresis, Dyspnea on exertion, edema, irregular heart beat, left arm pain, lightheadedness, palpitations, PND, syncope, others Gastrointestinal: denies: abdomen distended, abdominal pain, blood streaked bowels, constipated, diarrhea, dysphagia, difficulty swallowing, hematemesis, melena, nausea, poor appetite, poor fluid intake, rectal bleeding, rectal pain, vomiting, others Genitourinary: denies: abnormal vagina bleeding, burning, dyspareunia, dysuria, flank pain, frequency, hematuria, incontinence, pain, , vagina discharge, urgency, others Neurological: reports: headache; denies: dizziness, fainting, left sided numbness, left sided weakness, numbness, paresthesia, pre-existing deficit, right sided numbness, right sided weakness, seizure, speech problems, tingling, tremors, weakness, others Musculoskeletal: denies: back pain, gout, joint pain, joint swelling, muscle pain, muscle stiffness, neck pain, others Integumetry: denies: bruises, change in color, change in hair/nails, dryness, laceration, lesions, lumps, rash, wounds, others Allergic/Immunocompromised: denies: Difficulty Healing, Frequent Infections, Hives, Itching, others Hematologic/Lymphatic: denies: anemia, blood clots, easy bleeding, easy bruising, swollen glands, others Endocrine: denies: excessive hunger, excessive sweating, excessive thirst, excessive urination, flushing, intolerance to cold, intolerance to heat, unexplained weight gain, unexplained weight loss, others Psychiatric: denies: anxiety, bipolar disorder, depression, hopeless, panic disorder, schizophrenia, sleepless, suicidal, others All Other Systems: Reviewed and Negative Physical Exam General Appearance: No Apparent Distress, Normal HEENT: Normal ENT Inspection, Pharynx Normal, TMs Normal Neck: Full Range of Motion, Non-Tender, Normal, Normal Inspection Respiratory: Chest Non-Tender, Lungs Clear, No Accessory Muscle Use, No Respiratory Distress, Normal Breath Sounds Cardiovascular: No Edema, No JVD, No Murmur, No Gallop, Normal Peripheral Pulses, Regular Rate/Rhythm Breast Exam: Deferred Gastrointestinal: No Organomegaly, Non Tender, No Pulsatile Mass, Normal Bowel Sounds, Soft Genitalia: Deferred Pelvic: Deferred Rectal: Deferred Extremities: No calf tenderness, Normal capillary refill, Normal inspection, Normal range of motion, Non-tender, No pedal edema Musculoskeletal : Apperance: Normal Neurologic: 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 Was a procedure done?: No Differential Dx Considerations may include: Differential diagnosis includes hypertensive emergency, intracranial bleed, intracranial mass, primary headache disorder. Medication noncompliance. The workup is unremarkable in terms of the CAT scan on physical exam patient is awake and alert not encephalopathic however her blood pressure remains to be elevated in the 200 range. Patient will be admitted for further treatment to lower her blood pressure and further observation for the hyper seven hypertensive emergency X-Ray, Labs, Meds, VS Vital Signs Date Time Temp Pulse Resp B/P (MAP) Pulse Ox O2 Delivery O2 Flow Rate FiO2 09/27/24 20:45 68 10 155/65 (95) 94 09/27/24 20:30 69 11 156/68 (97) 09/27/24 20:15 69 8 166/63 (97) 97 09/27/24 20:00 69 10 182/73 (109) 96 09/27/24 19:30 71 11 96 Room Air* 0 21 09/27/24 19:30 99.1 71 11 186/104 (131) 96 99.1 09/27/24 19:30 71 186/104 09/27/24 19:00 71 14 189/77 (114) 97 09/27/24 18:45 70 9 182/76 (111) 93 09/27/24 18:30 71 18 184/77 (112) 95 09/27/24 18:15 71 10 176/64 (101) 95 09/27/24 18:00 72 10 176/64 (101) 96 09/27/24 17:45 72 16 193/75 (114) 98 8/20/25 17:30 72 12 203/79 (120) 98 09/27/24 17:15 72 15 214/ (130) 97 09/27/24 17:00 73 16 (128) 97 09/27/24 16:50 73 16 210/ (128) 97 09/27/24 16:35 74 12 209/ (128) 96 09/27/24 16:30 74 09/27/24 16:20 74 14 216/ (130) 97 09/27/24 16:05 98.5 76 15 219/94 (135) 97 98.5 09/27/24 16:00 78 09/27/24 16:00 78 09/27/24 15:44 80 207/09/27/24 15:21 77 11 / (127) 98 09/27/24 14:12 98.8 73 18 196/79 98 98.8 09/27/24 14:11 72 10 96 Room Air* 0 21 09/27/24 14:11 98.2 64 14 216/ (128) 96 98.2 Lab Test 09/27/24 17:25 09/27/24 15:17 09/27/24 14:06 Range/Units Troponin I High Sensitivity 37 *H 36 *H 33 </=34 ng/L Sodium Level 137 136-145 mmol/L Potassium Level 3.9 3.5-5.1 mmol/L Chloride Level 99 98-107 mmol/L Carbon Dioxide Level 28 20-31 mmol/L Anion Gap 10 5-15 Blood Urea Nitrogen 13 9-23 mg/dL Creatinine 4.75 H 0.550-1.02 mg/dL Glomerular Filtration Rate Calc 10 >90 mL/min BUN/Creatinine Ratio 2.7 L 10.0-20.0 Serum Glucose 105 74-106 mg/dL Calcium Level 8.0 L 8.7-10.4 mg/dL White Blood Count 3.8 L 4.4-10.8 10^3/uL Red Blood Count 2.77 L 4.0-5.20 10^6/uL Hemoglobin 9.7 L 12.2-16.2 g/dL Hematocrit 28.0 L 36.0-46.0 % Mean Corpuscular Volume 100.9 H 80.0-100.0 fL Mean Corpuscular Hemoglobin 34.8 H 28.0-32.0 pg Mean Corpuscular Hemoglobin Concent 34.5 32.0-36.0 g/dL Red Cell Distribution Width 15.6 H 11.8-14.3 % Platelet Count 156 140-450 10^3/uL Mean Platelet Volume 10.3 6.9-10.8 fL Neutrophils (%) (Auto) 71.7 37.0-80.0 % Lymphocytes (%) (Auto) 15.1 10.0-50.0 % Monocytes (%) (Auto) 10.2 0.0-12.0 % Eosinophils (%) (Auto) 1.9 0.0-7.0 % Basophils (%) (Auto) 1.1 0.0-2.0 % Neutrophils # (Auto) 2.7 1.6-8.6 10 ^3/uL Lymphocytes # (Auto) 0.6 0.4-5.4 10 ^3/uL Monocytes # (Auto) 0.4 0-1.3 10 ^3/uL Eosinophils # (Auto) 0.1 0-0.8 10 ^3/uL Basophils # (Auto) 0 0-0.2 10 ^3/uL Nucleated Red Blood Cells 0.0 % Current Medications Medications (Trade) Dose Ordered Sig/Altagracia Route Start Time Stop Time Status Last Admin Labetalol HCl 250 mg/Sodium Chloride 250 ml @ 60 mls/hr Q4H10M ONCE IV 09/27/24 14:30 09/27/24 18:39 DC 09/27/24 15:44 Acetaminophen/ Hydrocodone Bitart ([place] 5/325MG Tab) 1 tab ONCE ONCE PO 09/27/24 14:30 09/27/24 14:31 DC 09/27/24 15:00 Labetalol HCl 250 mg/Sodium Chloride 250 ml @ 60 mls/hr Q4H10M ONCE IV 09/27/24 19:30 09/27/24 23:39 09/27/24 19:30 Time of 1ST Reevaluation: 14:52 Reevaluation 1ST: Unchanged Time of 2ND Reevaluation: 17:32 Reevaluation 2ND: Improved Patient Education/Counseling: Diagnosis, Treatment, Prognosis, Need For Follow Up Family Education/Counseling: No Family Present Medical Screening: No EMC Exist At This Time SEPSIS Sepsis Screen Date sepsis recognized/suspect: Sep 27, 2024 Time Sepsis recognized/suspect: 1345 Recent Procedure: No On Antibiotic Therapy: No Respiratory Rate >20: No Heart Rate >90: No Temp<36 C (96.8 F) or >38.3 C: No SBP <90 or MAP <65 mmHG: No New Acute Mental Status Change: No Is the patient on CPAP, BIPAP,: No Physician Orders Continuous Ekg Monitoring 08,12,16,20,00,04 (09/27/24 14:27) Chest Xray 1 View (09/27/24 14:27) Head Without Contrast (09/27/24 14:27) Electrocardigram (09/27/24 15:27) Electrocardigram (09/27/24 17:27) Sodium Chl 0.9% (Ns... W/Labetalol Injec (09/27/24 19:30) Vital Signs Date Time Temp Pulse Resp B/P (MAP) Pulse Ox O2 Delivery O2 Flow Rate FiO2 09/27/24 20:45 68 10 155/65 (95) 94 09/27/24 20:30 69 11 156/68 (97) 09/27/24 20:15 69 8 166/63 (97) 97 09/27/24 20:00 69 10 182/73 (109) 96 09/27/24 19:30 71 11 96 Room Air* 0 21 09/27/24 19:30 99.1 71 11 186/104 (131) 96 99.1 09/27/24 19:30 71 186/104 09/27/24 19:00 71 14 189/77 (114) 97 09/27/24 18:45 70 9 182/76 (111) 93 09/27/24 18:30 71 18 184/77 (112) 95 09/27/24 18:15 71 10 176/64 (101) 95 09/27/24 18:00 72 10 176/64 (101) 96 09/27/24 17:45 72 16 193/75 (114) 98 09/27/24 17:30 72 12 203/79 (120) 98 09/27/24 17:15 72 15 214/88 (130) 97 09/27/24 17:00 73 16 210/88 (128) 97 09/27/24 16:50 73 16 210/88 (128) 97 09/27/24 16:35 74 12 209/ (128) 96 09/27/24 16:30 74 09/27/24 16:20 74 14 216/ (130) 97 09/27/24 16:05 98.5 76 15 219/94 (135) 97 98.5 09/27/24 16:00 78 09/27/24 16:00 78 09/27/24 15:44 80 207/87 09/27/24 15:21 77 11 / (127) 98 09/27/24 14:12 98.8 73 18 196/79 98 98.8 09/27/24 14:11 72 10 96 Room Air* 0 21 09/27/24 14:11 98.2 64 14 216/ (128) 96 98.2 Laboratory Tests Test 09/27/24 14:06 White Blood Count 3.8 10^3/uL (4.4-10.8) L Medications Medications Dose Ordered Sig/Altagracia Route Start Time Stop Time Status Last Admin Dose Admin Acetaminophen/ Hydrocodone Bitart 1 tab ONCE ONCE PO 09/27/24 14:30 09/27/24 14:31 DC 09/27/24 15:00 Labetalol HCl 250 mg/Sodium Chloride 250 ml @ 60 mls/hr Q4H10M ONCE IV 09/27/24 14:30 09/27/24 18:39 DC 09/27/24 15:44 Labetalol HCl 250 mg/Sodium Chloride 250 ml @ 60 mls/hr Q4H10M ONCE IV 09/27/24 19:30 09/27/24 23:39 09/27/24 19:30 Departure 1 Departure Time of Disposition: 17:32 Impression: Primary Impression: Hypertensive crisis Additional Impression: End stage kidney disease Disposition: 09 ADMITTED INPATIENT Admit to: ICU Condition: Serious Discharged With: Self Critical Care Note Critical Care Time?: Yes (55 min-critical care time only) Critical care comment: Due to concerns for patients condition deteriorating, the care required my highest level of attention and readiness to intervene. I assessed the patient, reviewed the medical records, ordered the appropriate tests and treatments, then reassessed for results and responsiveness. I communicated with medical personnel and consultants and formulated a plan of care. Total critical care time excludes any procedures Stability Stability form required: No Heart Score Heart Score: Heart Score Response (Comments) Value History N/A 0 EKG N/A 0 Age N/A 0 Risk Factors N/A 0 Troponin N/A 0 Total 0 I personally scribed for ДМИТРИЙ SARMIENTO MD ([email or web address]) on 09/27/24 at 14:31. Electronically submitted by Onofre Mckinney ([email or web address]). ДМИТРИЙ SARMIENTO MD Sep 27, 2024 14:31
[2024-09-27 14:39] LABS: Hematocrit 28.0 % (36.0-46.0); Hemoglobin 9.7 g/dL (12.2-16.2); Mean Corpuscular Hemoglobin 34.8 pg (28.0-32.0); Mean Corpuscular Volume 100.9 fL (80.0-100.0); Nucleated Red Blood Cells % 0.0 %
--- NOTE | 2024-09-27 14:58 | DVH ---
CT HEAD WITHOUT CONTRAST Indication: headache, htn EXAM DATE: 09/27/2024 02:32 PM COMPARISON: HEAD WITHOUT CONTRAST on DOS: 12/22/21, HEAD WITHOUT CONTRAST on DOS: 11/12/21 TECHNIQUE: CT of the head without intravenous contrast. RADIATION DOSE: CTDIvol: 65 mGy, DLP: 1274 mGy*cm FINDINGS: There is no intracranial hemorrhage. There is no extra-axial fluid, mass, mass effect or midline shif t. The ventricles are midline and normal in size. Basilar cisterns are patent. Mild periventricular a nd subcortical white matter chronic microvascular ischemic changes. Mild global cerebral volume loss . The paranasal sinuses and mastoids are well-pneumatized. Imaged portion of the orbits are unremarkabl e. IMPRESSION: No intracranial hemorrhage or mass effect.
--- NOTE | 2024-09-27 14:58 | DVH ---
CHEST RADIOGRAPH Indication: htn Technique: Single frontal view of the chest was obtained Comparison: CHEST PORTABLE on DOS: 12/22/21, CXRP on DOS: 12/22/21, CXRP on DOS: 11/12/21, CHEST IRMA BLE on DOS: 11/12/21 FINDINGS: Lines and Tubes: None Lungs: No focal consolidation. Pleura: No effusion. No pneumothorax. Cardiomediastinal contours: . Cardiomegaly. Bones: No acute osseous abnormality. IMPRESSION: Cardiomegaly with CHF.
[2024-09-27] MEDS: HYDROcodone-ACET 5/325MG TAB PO ONE (15:00)
[2024-09-27] MEDS: LABETALOL INJECTION 250 MG in SODIUM CHL 0.9% 200 ML IV ONE ×2 (15:44→19:30)
[2024-09-27 15:49] LABS: Anion Gap 10 (5-15); Calcium 8.0 mg/dL (8.7-10.4); Carbon Dioxide 28 mmol/L (20-31); Chloride 99 mmol/L (98-107); Potassium 3.9 mmol/L (3.5-5.1); Sodium 137 mmol/L (136-145)
[2024-09-27 15:54] LABS: BUN/Creatinine Ratio 2.7 (10.0-20.0); Blood Urea Nitrogen 13 mg/dL (9-23); Glucose 105 mg/dL (74-106)
--- NOTE | 2024-09-27 18:35 | ECG ---
[facility] Test Date: 2024-09-27 Test Time: 16:27:40 Pat Name: CARLOS LANGLEY Department: [facility] ED Patient ID: [facility]-[id number] Room: [address] [place] [address] Gender: F Rn X Ray: CHUNG : 1965 Requested By: ДМИТРИЙ SARMIENTO Order Number: [id number] Reading MD: Troy William Measurements Intervals Wilson Rate: 74 P: 72 WV: 188 QRS: 59 QRSD: 94 T: 55 QT: 445 QTc: 494 Interpretive Statements Sinus rhythm Borderline prolonged QT interval Electronically Signed On 09-27-2024 22:36:56 PDT by Troy William Please click the below link to view image of tracing.
[2024-09-27 19:30] VITALS: PULSE 71; RESP 11; O2SAT 96
[2024-09-27] MEDS ORDERED: DEXTROSE (50%) 50ML SYRG IV PRN (21:30)
[2024-09-27] MEDS: LABETALOL INJECTION 250 MG in SODIUM CHL 0.9% 200 ML IV SCH (21:30)
[2024-09-27] MEDS ORDERED: MORPHINE SULFATE INJ 2 MG/ml SYRG IV PRN (21:30)
[2024-09-27] MEDS ORDERED: NITROGLYCERIN 0.4 MG SL TAB SL PRN (21:30)
[2024-09-27] MEDS: InsuLIN REG 1unit/0.01ml Soln (100units/ml) SC SCH (22:00)
[2024-09-27] MEDS: CARVEDILOL 3.125 MG TAB PO SCH (22:09)
[2024-09-27] MEDS: GABAPENTIN 300 MG CAP PO SCH (22:09)
[2024-09-27] MEDS: ACCU-CHEK COMFORT CURVE STRIP VI SCH (22:13)
[2024-09-27] MEDS: TEMAZEPAM 15 MG CAP PO ONE (22:16)
[2024-09-27] MEDS: NICARDIPINE HCL IN SODIUM CHLO 200 ML IV SCH (23:15)
--- NOTE | 2024-09-28 02:16 | DVHHP2 ---
History of Present Illness Reason for Visit: Hypertension History of Present Illness 58-year-old female presents for evaluation of hypertension. Patient reports a one day history of elevated blood pressure. She was completing her dialysis session yesterday when her blood pressure was in the 200s. Patient was brought in for evaluation. She reports a frontal headache and some dizziness. No chest pain or palpitations. No other acute symptoms. Past Medical History Dyslipidemia, hypertension, diabetes mellitus, chronic kidney disease Past Surgical History Tonsillectomy, Family History Hypertension Smoke: No ALCOHOL: occassional Drugs: None Lives: with Family Review of Systems Review of Systems Review of systems are currently negative otherwise addressed in HPI. Allergies: Coded Allergies: Codeine (Verified Allergy, Unknown, 12/22/21) Lisinopril (Verified Allergy, Unknown, 10/13/18) Medications Current Medications Medications Dose Ordered Sig/Altagracia Route Start Time Stop Time Status Last Admin Dose Admin Losartan Potassium 100 mg DAILY PO 09/28/24 10:00 Furosemide 80 mg BIDD PO 09/28/24 06:00 Hydralazine HCl 50 mg Q8HR PO 09/27/24 22:00 09/27/24 22:09 50 MG Hydralazine HCl 10 mg Q6HP PRN IV 09/27/24 21:30 Gabapentin 600 mg TID PO 09/27/24 22:00 09/27/24 22:09 600 MG Carvedilol 6.25 mg Q12HR PO 09/27/24 22:00 09/27/24 22:09 6.25 MG Diagnostic Test (Pha) 1 strip ACHS 09/27/24 22:00 09/27/24 22:13 1 STRIP Insulin Human Regular ACHS SC 09/27/24 22:00 Dextrose 50 ml UD PRN IV 09/27/24 21:30 Ondansetron HCl 4 mg Q4HP PRN IV 09/27/24 21:30 Acetaminophen 650 mg Q6HP PRN PO 09/27/24 21:30 Nitroglycerin 0.4 mg Q5MINP PRN SL 09/27/24 21:30 Morphine Sulfate 2 mg Q30M PRN IV 09/27/24 21:30 Hold Nicardipine/ Sodium Chloride 200 ml @ 50 mls/hr Q4H IV 09/27/24 23:00 09/27/24 23:15 50 MLS/HR Exam Vital Signs Vital Signs Date Time Temp Pulse Resp B/P (MAP) Pulse Ox O2 Delivery O2 Flow Rate FiO2 09/28/24 02:00 66 15 147/65 (92) 90 09/27/24 19:30 Room Air* 0 21 09/27/24 19:30 99.1 99.1 Exam Gen: 58-year-old female in mild distress Skin: Warm, dry, normal color and texture, no rash. HEENT: Normocephalic atraumatic, mucous membranes moist and pink. Neck: Cervical and supraclavicular nodes normal without enlargement, trachea is midline, thyroid gland is normal without masses. Pulmonary: Clear to auscultation and percussion bilaterally. Cardiac: Regular rate and rhythm. No murmur Abdomen: Soft, nontender, nondistended, bowel sounds present all 4 quadrants, no guarding, no rigidity, no organomegaly. Extremities: No cyanosis, clubbing, no edema Neuro: Cranial nerves II through XII grossly intact, normal affect and speech, no focal motor deficits. Labs/Xrays ORDERING PHYSICIAN: ДМИТРИЙ SARMIENTO MD PROCEDURE(s): CXR1 - CHEST XRAY 1 VIEW REASON: htn ORDER NUMBER(s): [id number], ACCESSION NUMBER(s): [id number] CHEST RADIOGRAPH Indication: htn Technique: Single frontal view of the chest was obtained Comparison: CHEST PORTABLE on DOS: 12/22/21, CXRP on DOS: 12/22/21, CXRP on DOS: 11/12/21, CHEST PORTABLE on DOS: 11/12/21 FINDINGS: Lines and Tubes: None Lungs: No focal consolidation. Pleura: No effusion. No pneumothorax. Cardiomediastinal contours: . Cardiomegaly. Bones: No acute osseous abnormality. IMPRESSION: Cardiomegaly with CHF. RING PHYSICIAN: ДМИТРИЙ SARMIENTO MD PROCEDURE(s): HWOCT - HEAD WITHOUT CONTRAST REASON: headache, htn ORDER NUMBER(s): [id number], ACCESSION NUMBER(s): [id number] CT HEAD WITHOUT CONTRAST Indication: headache, htn EXAM DATE: 09/27/2024 02:32 PM COMPARISON: HEAD WITHOUT CONTRAST on DOS: 12/22/21, HEAD WITHOUT CONTRAST on DOS: 11/12/21 TECHNIQUE: CT of the head without intravenous contrast. RADIATION DOSE: CTDIvol: 65 mGy, DLP: 1274 mGy*cm FINDINGS: There is no intracranial hemorrhage. There is no extra-axial fluid, mass, mass effect or midline shift. The ventricles are midline and normal in size. Basilar cisterns are patent. Mild periventricular and subcortical white matter chronic microvascular ischemic changes. Mild global cerebral volume loss. The paranasal sinuses and mastoids are well-pneumatized. Imaged portion of the orbits are unremarkable. IMPRESSION: No intracranial hemorrhage or mass effect. ATED BY: SHANNA LEAL MD DICTATED DATE/TIME: 09/27/24 1458 Labs Test 09/27/24 22:12 09/27/24 17:25 09/27/24 15:17 09/27/24 14:06 Range/Units POC Glucose 138 H 70-106 mg/dl Troponin I High Sensitivity 37 *H </=34 ng/L Sodium Level 137 136-145 mmol/L Potassium Level 3.9 3.5-5.1 mmol/L Chloride Level 99 98-107 mmol/L Carbon Dioxide Level 28 20-31 mmol/L Anion Gap 10 5-15 Blood Urea Nitrogen 13 9-23 mg/dL Creatinine 4.75 H 0.550-1.02 mg/dL Glomerular Filtration Rate Calc 10 >90 mL/min BUN/Creatinine Ratio 2.7 L 10.0-20.0 Serum Glucose 105 74-106 mg/dL Calcium Level 8.0 L 8.7-10.4 mg/dL White Blood Count 3.8 L 4.4-10.8 10^3/uL Red Blood Count 2.77 L 4.0-5.20 10^6/uL Hemoglobin 9.7 L 12.2-16.2 g/dL Hematocrit 28.0 L 36.0-46.0 % Mean Corpuscular Volume 100.9 H 80.0-100.0 fL Mean Corpuscular Hemoglobin 34.8 H 28.0-32.0 pg Mean Corpuscular Hemoglobin Concent 34.5 32.0-36.0 g/dL Red Cell Distribution Width 15.6 H 11.8-14.3 % Platelet Count 156 140-450 10^3/uL Mean Platelet Volume 10.3 6.9-10.8 fL Neutrophils (%) (Auto) 71.7 37.0-80.0 % Lymphocytes (%) (Auto) 15.1 10.0-50.0 % Monocytes (%) (Auto) 10.2 0.0-12.0 % Eosinophils (%) (Auto) 1.9 0.0-7.0 % Basophils (%) (Auto) 1.1 0.0-2.0 % Neutrophils # (Auto) 2.7 1.6-8.6 10 ^3/uL Lymphocytes # (Auto) 0.6 0.4-5.4 10 ^3/uL Monocytes # (Auto) 0.4 0-1.3 10 ^3/uL Eosinophils # (Auto) 0.1 0-0.8 10 ^3/uL Basophils # (Auto) 0 0-0.2 10 ^3/uL Nucleated Red Blood Cells 0.0 % SEPSIS Sepsis Screen Date sepsis recognized/suspect: Sep 27, 2024 Time Sepsis recognized/suspect: 1929 Recent Procedure: No On Antibiotic Therapy: No Respiratory Rate >20: No Heart Rate >90: No Temp<36 C (96.8 F) or >38.3 C: No SBP <90 or MAP <65 mmHG: No New Acute Mental Status Change: No Is the patient on CPAP, BIPAP,: No Physician Orders *[facility] (09/27/24 21:26) * Cardiology Consult (09/27/24 21:26) Losartan Tablet (Cozaar Tablet) (09/28/24 10:00) Furosemide Tablet (Lasix Tablet) (09/28/24 06:00) Hydralazine Hcl Tablet (Apresoline Table (09/27/24 22:00) Hydralazine Injection (Apresoline Inject (09/27/24 21:30) Gabapentin Capsule (Neurontin Capsule) (09/27/24 22:00) Carvedilol Tablet (Coreg Tablet) (09/27/24 22:00) Basic Metabolic Panel (09/28/24 04:00) Glucose Blood (Accu-Chek Comfort Curve T (09/27/24 22:00) Insulin R (Human) (Insulin R) (09/27/24 22:00) Dextrose 50% Syringe (09/27/24 21:30) Admit (09/27/24:) Renal Standard(2gna,3gk,Lopho) (09/28/24 Breakfast) Ondansetron Hcl (Zofran) (09/27/24 21:30) Echo 2d Mode Cardiac Dop (09/27/24:) Condition: Critical (09/27/24:) Acetaminophen Tablet (Tylenol Tablet) (09/27/24 21:30) Bedrest With Bathroom Privileg (09/27/24:) Nitroglycerin Sublingual (Ntrostat Subli (09/27/24:) Morphine Sulfate Injection (09/27/24:) Stat Ekg For Chest Pain (09/27/24) Notify Md Of Changes From Base (09/27/24:) Marking Devices Assembler For 24 Hours (09/27/24:) Emergency Dysrhythmia Protocol (09/27/24) Rhythm Strips Once Every Shift (09/27/24:) Oxygen By Nasal Cannula (09/27/24:) Nicardipine Hcl In Sodium Chlo (Cardene (09/27/24 23:00) Vital Signs Date Time Temp Pulse Resp B/P (MAP) Pulse Ox O2 Delivery O2 Flow Rate FiO2 09/28/24 02:00 66 15 147/65 (92) 90 09/28/24 01:45 68 15 150/65 (93) 97 09/28/24 01:30 68 16 144/57 (86) 96 09/28/24 01:15 67 14 151/65 (93) 97 09/28/24 01:00 67 13 144/55 (84) 98 09/28/24 01:00 67 13 144/55 (84) 98 09/28/24 00:45 66 20 144/57 (86) 97 09/28/24 00:30 66 18 139/58 (85) 97 09/28/24 00:30 66 18 139/58 (85) 97 09/28/24 00:15 125/54 09/28/24 00:15 65 15 125/54 (77) 94 09/28/24 00:00 64 17 133/59 (83) 91 09/28/24 00:00 64 17 133/59 (83) 91 09/27/24 23:45 64 17 123/50 (74) 92 09/27/24 23:30 64 19 143/71 (95) 94 09/27/24 23:15 65 18 174/75 (108) 95 09/27/24 23:15 174/75 09/27/24 23:00 66 17 176/77 (110) 93 09/27/24 22:55 66 166/72 09/27/24 22:45 65 15 166/72 (103) 98 09/27/24 22:30 67 11 181/66 (104) 98 09/27/24 22:15 68 11 182/80 (114) 98 09/27/24 22:09 68 183/77 09/27/24 22:09 183/77 09/27/24 22:00 68 12 184/75 (111) 98 09/27/24 21:45 69 12 176/73 (107) 99 09/27/24 21:30 69 15 169/67 (101) 98 09/27/24 21:30 69 169/67 09/27/24 21:15 67 15 170/72 (104) 95 09/27/24 21:00 67 10 161/69 (99) 95 09/27/24 20:45 68 10 155/65 (95) 94 09/27/24 20:30 69 11 156/68 (97) 09/27/24 20:15 69 8 166/63 (97) 97 09/27/24 20:00 69 10 182/73 (109) 96 09/27/24 19:30 71 11 96 Room Air* 0 21 09/27/24 19:30 99.1 71 11 186/104 (131) 96 99.1 09/27/24 19:30 71 186/104 09/27/24 19:00 71 14 189/77 (114) 97 09/27/24 18:45 70 9 182/76 (111) 93 09/27/24 18:30 71 18 184/77 (112) 95 09/27/24 18:15 71 10 176/64 (101) 95 Medications Medications Dose Ordered Sig/Altagracia Route Start Time Stop Time Status Last Admin Dose Admin Acetaminophen/ Hydrocodone Bitart 1 tab ONCE ONCE PO 09/27/24 14:30 09/27/24 14:31 DC 09/27/24 15:00 1 TAB Carvedilol 6.25 mg Q12HR PO 09/27/24 22:00 09/27/24 22:09 6.25 MG Diagnostic Test (Pha) 1 strip ACHS 09/27/24 22:00 09/27/24 22:13 1 STRIP Gabapentin 600 mg TID PO 09/27/24 22:00 09/27/24 22:09 600 MG Hydralazine HCl 50 mg Q8HR PO 09/27/24 22:00 09/27/24 22:09 50 MG Labetalol HCl 250 mg/Sodium Chloride 250 ml @ 60 mls/hr Q4H10M IV 09/27/24 21:30 09/27/24 22:58 DC 09/27/24 21:30 180 MLS/HR Labetalol HCl 250 mg/Sodium Chloride 250 ml @ 60 mls/hr Q4H10M ONCE IV 09/27/24 14:30 09/27/24 18:39 DC 09/27/24 15:44 60 MLS/HR Labetalol HCl 250 mg/Sodium Chloride 250 ml @ 60 mls/hr Q4H10M ONCE IV 09/27/24 19:30 09/27/24 21:45 DC 09/27/24 19:30 120 MLS/HR Nicardipine/ Sodium Chloride 200 ml @ 50 mls/hr Q4H IV 09/27/24 23:00 09/27/24 23:15 50 MLS/HR Temazepam 15 mg ONCE ONCE PO 09/27/24 22:15 09/27/24 22:16 DC 09/27/24 22:16 15 MG Assessment/Plan Assessment/Plan Assessment Hypertensive emergency Diabetes mellitus End-stage renal disease, dialysis dependent Anemia of chronic disease Elevated troponin, demand ischemia Plan Admit the patient to ICU to the hospitalist Continue nicardipine drip Nephrology consult Cardiology consult Echocardiogram pending Resume home medications As needed antihypertensives to wean off nicardipine Continue treatment per orders Total critical care time excluding procedures performed is 55 minutes. Plan discussed with: Patient My Orders Orders - MYRIAM WONG AGACNP Procedure Category Date Status Time *Dr[facility] CONS 09/27/24 Transmitted -[place] 21:26 * Cardiology Consult CONS 09/27/24 Transmitted 21:26 Losartan Tablet PHA 09/28/24 In Process (Cozaar Tablet) 10:00 Furosemide Tablet PHA 09/28/24 In Process (Lasix Tablet) 06:00 Hydralazine Hcl PHA 09/27/24 In Process Tablet (Apresoline 22:00 Hydralazine Injection PHA 09/27/24 In Process (Apresoline Inject 21:30 Gabapentin Capsule PHA 09/27/24 In Process (Neurontin Capsule) 22:00 Carvedilol Tablet PHA 09/27/24 In Process (Coreg Tablet) 22:00 Basic Metabolic Panel LAB 09/28/24 Logged 04:00 Glucose Blood PHA 09/27/24 In Process (Accu-Chek Comfort 22:00 Insulin R (Human) PHA 09/27/24 In Process (Insulin R) 22:00 Dextrose 50% Syringe PHA 09/27/24 In Process 21:30 Admit ADMIT 09/27/24 Transmitted 21:26 Renal DIET 09/28/24 Transmitted Standard(2gna,3gk,Lopho) Breakfast Ondansetron Hcl PHA 09/27/24 In Process (Zofran) 21:30 Echo 2d Mode Cardiac US 09/27/24 Logged DOP 21:26 Condition: Critical BRIEN 09/27/24 In Process 21:26 Acetaminophen Tablet PHA 09/27/24 In Process (Tylenol Tablet) 21:30 Bedrest With Bathroom BRIEN 09/27/24 In Process Privileg 21:26 Nitroglycerin PHA 09/27/24 In Process Sublingual (Ntrostat 21:30 Morphine Sulfate PHA 09/27/24 In Process Injection 21:30 Stat Ekg For Chest BRIEN 09/27/24 In Process Pain 21:26 Notify Md Of Changes BRIEN 09/27/24 In Process From Base 21:26 Marking Devices Assembler For BRIEN 09/27/24 In Process 24 Hours 21:26 Emergency Dysrhythmia BRIEN 09/27/24 In Process Protocol 21:26 Rhythm Strips Once BRIEN 09/27/24 In Process Every Shift 21:26 Oxygen By Nasal RT 09/27/24 Transmitted Cannula 21:26 Nicardipine Hcl In PHA 09/27/24 In Process Sodium Chlo (Cardene 23:00 Date of Service: Sep 28, 2024 Billing Provider: MYRIAM WONG Common Visit Codes: [id number] CARE 30-74 MIN [facility] Sep 28, 2024 02:16
[2024-09-28] MEDS: FUROSEMIDE 40 MG TAB PO SCH (05:58)
[2024-09-28 06:18] LABS: Chloride 101 mmol/L (98-107); Potassium 4.1 mmol/L (3.5-5.1); Sodium 138 mmol/L (136-145)
[2024-09-28 06:19] LABS: Anion Gap 10 (5-15); Carbon Dioxide 27 mmol/L (20-31)
[2024-09-28 06:24] LABS: Glucose 83 mg/dL (74-106)
[2024-09-28 06:25] LABS: BUN/Creatinine Ratio 2.6 (10.0-20.0); Blood Urea Nitrogen 15 mg/dL (9-23); Calcium 7.5 mg/dL (8.7-10.4)
--- NOTE | 2024-09-28 09:12 | DVHINCON2 ---
Date Seen: Sep 28, 2024 Referring Physician LOIS Medina Reason for Consultation Hypertensive urgency, elevated troponin History of Present Illness This is a 58-year-old female patient who presents to the emergency room with chief complaint of headache and ear ringing. The patient was undergoing hemodialysis and was noted to have blood pressures reaching as high as systolic greater than 200s. EMS was called and the patient was brought to the emergency room for further evaluation. Blood pressure upon emergency room arrival reached as high as 216/84. Cardiology has been consulted at this time for hypertensive emergency. Initial twelve lead electrocardiogram reveals normal sinus rhythm without any significant ST segment changes. Initial troponin level of 33ng/L with slight up trend and peak level at 37ng/L. The patient denies any cardiac symptoms such as chest pain, palpitations, or shortness of breath. The patient is not a good historian. Patient keeps falling asleep during interview. Medical history obtained from previous medical records and bedside RN. Significant past medical history includes hypertension, end-stage renal disease on hemodialysis and type 2 diabetes mellitus. She denies following up with a forensic accountant in the outpatient setting. Past Medical History Past medical history reviewed. No other significant than mentioned above. Past Surgical History Denies Family History: Hypertension G8 MOTHER G8 FATHER Family History Family history reviewed. Social History Denies the use of tobacco, alcohol or illicit drugs. Allergies: Coded Allergies: Codeine (Verified Allergy, Unknown, 12/22/21) Lisinopril (Verified Allergy, Unknown, 10/13/18) Home Meds Active Scripts Calcium Carbonate (Calcium Carbonate) 500 Mg Chw, 500 MG PO BID for 30 Days, #60 TAB.CHEW Prov:JOE CORRAL MD 11/13/21 Reported Medications Zolpidem Tartrate (Zolpidem Tartrate) 5 Mg Tab, 1 TAB PO QPM, #30 TAB 2 Refills 12/24/21 Gabapentin (Neurontin) 300 Mg Cap, 1 CAP PO BID, #90 CAP 3 Refills 12/24/21 Hydrochlorothiazide (Hydrochlorothiazide) 25 Mg Tab, 25 MG PO DAILY for 30 Days, MG 12/24/21 Tramadol Hcl (Tramadol Hcl) 50 Mg Tab, 50 MG PO DAILY PRN for MODERATE PAIN (4-6 PAIN SCALE), MG 12/24/21 Lovastatin (Lovastatin) 20 Mg Tab, 1 TAB PO DAILY, #30 TAB 5 Refills 12/24/21 Home Meds Home medications reviewed. Current Medications Current Medications Medications (Trade) Dose Ordered Sig/Altagracia Route PRN Reason Start Time Stop Time Status Last Admin Labetalol HCl 250 mg/Sodium Chloride 250 ml @ 60 mls/hr Q4H10M IV 09/27/24 21:30 09/27/24 22:58 DC 09/27/24 21:30 Losartan Potassium (Cozaar Tablet) 100 mg DAILY PO 09/28/24 10:00 Furosemide (Lasix Tablet) 80 mg BIDD PO 09/28/24 06:00 09/28/24 05:58 Nifedipine (Procardia Xl (Time-Release)) 60 mg DAILY PO 09/28/24 10:00 09/27/24 23:11 DC Hydralazine HCl (Apresoline Tablet) 50 mg Q8HR PO 09/27/24 22:00 09/28/24 05:57 Hydralazine HCl (Apresoline Injection) 10 mg Q6HP PRN IV SBP>150 09/27/24 21:30 Gabapentin (Neurontin Capsule) 600 mg TID PO 09/27/24 22:00 09/28/24 05:57 Carvedilol (Coreg Tablet) 6.25 mg Q12HR PO 09/27/24 22:00 09/27/24 22:09 Diagnostic Test (Pha) (Accu-Chek Comfort Curve T) 1 strip ACHS 09/27/24 22:00 09/28/24 06:46 Insulin Human Regular (InsuLIN R) ACHS SC 09/27/24 22:00 Dextrose 50 ml UD PRN IV Blood Sugar LESS THAN 60 09/27/24 21:30 Ondansetron HCl (Zofran) 4 mg Q4HP PRN IV NAUSEA / VOMITING 09/27/24 21:30 Acetaminophen (Tylenol Tablet) 650 mg Q6HP PRN PO PAIN SCALE 1-3 OR TEMP>100.4 09/27/24 21:30 Nitroglycerin (Ntrostat Sublingual) 0.4 mg Q5MINP PRN SL FOR CHEST PAIN 09/27/24 21:30 Morphine Sulfate 2 mg Q30M PRN IV FOR CHEST PAIN 09/27/24 21:30 Hold Nicardipine/ Sodium Chloride 200 ml @ 50 mls/hr Q4H IV 09/27/24 23:00 09/28/24 03:58 DC 09/27/24 23:15 Review of Systems Constitutional: No symptom reported Ears, Nose, & Throat: No symptom reported Eyes: No symptom reported Neurological: Headache Pulmonary/Respiratory: No symptoms reported Cardiovascular: No symptom reported Gastrointestinal: No symptom reported Genitourinary: No symptom reported Musculoskeletal: No symptom reported Skin: No symptom reported Psychiatric: No symptom reported Endocrine: No symptom reported Hematologic/Lymphatic: No symptom reported Vital Signs Vital Signs Date Time Temp Pulse Resp B/P (MAP) Pulse Ox O2 Delivery O2 Flow Rate FiO2 09/28/24 06:00 68 12 165/69 (101) 98 09/27/24 19:30 Room Air* 0 21 09/27/24 19:30 99.1 99.1 Physical Exam General Appearance: Cooperative. Well-developed. Well-nourished. No acute distre ss. Pulmonary/Respiratory: Clear, bilateral breaths sounds. Cardiovascular/Chest: Regular rate and rhythm. Peripheral Pulses: 2+ Radial (R). 2+ Radial (L). 2+ Pedal (R). 2+ Pedal (L) Abdominal Exam: Normal bowel sounds. Ankle Exam: Negative ankle edema Lower extremities: Negative lower extremity edema Neuro/Mental Status: A/OX3, coherent but falls asleep easily Thoughts/Psych: Normal thought pattern. Appropriate mood and affect. Good judgment and insight. Appearance: No acute distress. Skin Exam: Normal inspection. Normal color. Warm and dry. Labs/Diagnostic Data Labs Test 09/28/24 04:55 09/27/24 22:12 09/27/24 17:25 09/27/24 14:34 Range/Units Sodium Level 138 136-145 mmol/L Potassium Level 4.1 3.5-5.1 mmol/L Chloride Level 101 98-107 mmol/L Carbon Dioxide Level 27 20-31 mmol/L Anion Gap 10 5-15 Blood Urea Nitrogen 15 9-23 mg/dL Creatinine 5.74 H 0.550-1.02 mg/dL Glomerular Filtration Rate Calc 8 >90 mL/min BUN/Creatinine Ratio 2.6 L 10.0-20.0 Serum Glucose 83 74-106 mg/dL Calcium Level 7.5 L 8.7-10.4 mg/dL POC Glucose 138 H 70-106 mg/dl Troponin I High Sensitivity 37 *H </=34 ng/L B-Type Natriuretic Peptide 3799.05 0-100 pg/mL Test 09/27/24 14:06 Range/Units White Blood Count 3.8 L 4.4-10.8 10^3/uL Red Blood Count 2.77 L 4.0-5.20 10^6/uL Hemoglobin 9.7 L 12.2-16.2 g/dL Hematocrit 28.0 L 36.0-46.0 % Mean Corpuscular Volume 100.9 H 80.0-100.0 fL Mean Corpuscular Hemoglobin 34.8 H 28.0-32.0 pg Mean Corpuscular Hemoglobin Concent 34.5 32.0-36.0 g/dL Red Cell Distribution Width 15.6 H 11.8-14.3 % Platelet Count 156 140-450 10^3/uL Mean Platelet Volume 10.3 6.9-10.8 fL Neutrophils (%) (Auto) 71.7 37.0-80.0 % Lymphocytes (%) (Auto) 15.1 10.0-50.0 % Monocytes (%) (Auto) 10.2 0.0-12.0 % Eosinophils (%) (Auto) 1.9 0.0-7.0 % Basophils (%) (Auto) 1.1 0.0-2.0 % Neutrophils # (Auto) 2.7 1.6-8.6 10 ^3/uL Lymphocytes # (Auto) 0.6 0.4-5.4 10 ^3/uL Monocytes # (Auto) 0.4 0-1.3 10 ^3/uL Eosinophils # (Auto) 0.1 0-0.8 10 ^3/uL Basophils # (Auto) 0 0-0.2 10 ^3/uL Nucleated Red Blood Cells 0.0 % Assessment Hypertensive emergency, resolved NSTEMI type II, secondary to above Rule out structural heart disease Dyslipidemia Acute on chronic anemia End-stage renal disease on hemodialysis Type 2 diabetes mellitus Plan/Recommendation We will continue with the following plan/recommendations (Dr. Morales): We will proceed with obtaining a transthoracic echocardiogram to evaluate cardiac function. Continue with aggressive blood pressure control as tolerated and up-titrate as needed. Continue with lipid-lowering agent. Continue with close cardiac surveillance and notify cardiology team immediately for any ECG changes. Thank you for allowing us to care for this patient. Please call with any questions or concerns. Critical care time spent: 44 minutes This medical document was created using an electronic medical record system with voice recognition software and computerized dictation system. Although this document has been carefully reviewed, there might still be some phonetic and typographical errors. Occasional wrong-word or ``sound-alike substitutions may have occurred due to the inherent limitations of voice recognition software. These areas are purely typographical due to imperfections of the software programs and do not reflect any compromise in the patient's medical care. Please read the chart carefully and recognize, using context, where these substitutions have occurred. Plan discussed with: Patient NYHA Physical activity limitations: NA Date of Service: Sep 28, 2024 Billing Provider: VIRI FALK Cardiology Common Codes: [id number] INP/OBS CARE (High) Cardiology Consultation Codes: [id number] CONSULT <45MIN VIRI FALK Sep 28, 2024 09:12
[2024-09-28] MEDS: LOSARTAN POTASSIUM 50 MG TAB PO SCH (09:29)
[2024-09-28 11:35] LABS: Triglycerides 79.0 mg/dL (< 150)
[2024-09-28 11:36] LABS: Magnesium 2.2 mg/dL (1.6-2.6)
[2024-09-28 11:37] LABS: Cholesterol 144.0 mg/dL (< 200)
[2024-09-28 11:38] LABS: HDL Cholesterol 71.0 mg/dL (40-59)
[2024-09-28 11:39] VITALS: BP 135/63; PULSE 68
--- NOTE | 2024-09-28 14:07 | DVHINCON2 ---
Date of service: Sep 28, 2024 Reason for Consultation ESRD History of Present Illness 58-year-old female past medical history of hypertension, hyperlipidemia, end- stage renal disease on hemodialysis Wednesday. Patient is poorly compliant with hemodialysis treatment and quite often cuts treatments early. She presents to the hospital after dialysis treatment because blood pressure did not decrease after treatment. She was admitted for hypertensive emergency. Allergies: Coded Allergies: Codeine (Verified Allergy, Unknown, 12/22/21) Lisinopril (Verified Allergy, Unknown, 10/13/18) Home Meds Active Scripts Calcium Carbonate (Calcium Carbonate) 500 Mg Chw, 500 MG PO BID for 30 Days, #60 TAB.CHEW Prov:JOE CORRAL MD 11/13/21 Reported Medications Carvedilol (Carvedilol) 3.125 Mg Tab, PO BID for 30 Days, MG 09/28/24 Losartan Potassium (Losartan Potassium) 100 Mg Tab, 1 TAB PO DAILY, #30 TAB 5 Refills 09/28/24 Zolpidem Tartrate (Zolpidem Tartrate) 5 Mg Tab, 1 TAB PO QPM, #30 TAB 2 Refills 12/24/21 Gabapentin (Neurontin) 300 Mg Cap, 1 CAP PO BID, #90 CAP 3 Refills 12/24/21 Hydrochlorothiazide (Hydrochlorothiazide) 25 Mg Tab, 25 MG PO DAILY for 30 Days, MG 12/24/21 Tramadol Hcl (Tramadol Hcl) 50 Mg Tab, 50 MG PO DAILY PRN for MODERATE PAIN (4-6 PAIN SCALE), MG 12/24/21 Lovastatin (Lovastatin) 20 Mg Tab, 1 TAB PO DAILY, #30 TAB 5 Refills 12/24/21 Current Medications Current Medications Medications (Trade) Dose Ordered Sig/Altagracia Route PRN Reason Start Time Stop Time Status Last Admin Labetalol HCl 250 mg/Sodium Chloride 250 ml @ 60 mls/hr Q4H10M IV 09/27/24 21:30 09/27/24 22:58 DC 09/27/24 21:30 Losartan Potassium (Cozaar Tablet) 100 mg DAILY PO 09/28/24 10:00 09/28/24 09:29 Furosemide (Lasix Tablet) 80 mg BIDD PO 09/28/24 06:00 09/28/24 17:12 Nifedipine (Procardia Xl (Time-Release)) 60 mg DAILY PO 09/28/24 10:00 09/27/24 23:11 DC Hydralazine HCl (Apresoline Tablet) 50 mg Q8HR PO 09/27/24 22:00 09/28/24 15:48 Hydralazine HCl (Apresoline Injection) 10 mg Q6HP PRN IV SBP>150 09/27/24 21:30 Gabapentin (Neurontin Capsule) 600 mg TID PO 09/27/24 22:00 09/28/24 14:20 Carvedilol (Coreg Tablet) 6.25 mg Q12HR PO 09/27/24 22:00 09/28/24 09:29 Diagnostic Test (Pha) (Accu-Chek Comfort Curve T) 1 strip ACHS 09/27/24 22:00 09/28/24 16:09 Insulin Human Regular (InsuLIN R) ACHS SC 09/27/24 22:00 09/28/24 11:58 Dextrose 50 ml UD PRN IV Blood Sugar LESS THAN 60 09/27/24 21:30 Ondansetron HCl (Zofran) 4 mg Q4HP PRN IV NAUSEA / VOMITING 09/27/24 21:30 Acetaminophen (Tylenol Tablet) 650 mg Q6HP PRN PO PAIN SCALE 1-3 OR TEMP>100.4 09/27/24 21:30 09/28/24 16:07 Nitroglycerin (Ntrostat Sublingual) 0.4 mg Q5MINP PRN SL FOR CHEST PAIN 09/27/24 21:30 Morphine Sulfate 2 mg Q30M PRN IV FOR CHEST PAIN 09/27/24 21:30 Hold Nicardipine/ Sodium Chloride 200 ml @ 50 mls/hr Q4H IV 09/27/24 23:00 09/28/24 03:58 DC 09/27/24 23:15 Atorvastatin Calcium (Lipitor) 20 mg HS PO 09/28/24 22:00 Family History: Diabetes mellitus G8 MOTHER G8 FATHER Hypertension G8 MOTHER G8 FATHER Review of Systems Uncontrolled high blood pressure H&P Exam Vital Signs/I&O Vital Sign Date Time Temp Pulse Resp B/P (MAP) Pulse Ox O2 Delivery O2 Flow Rate FiO2 09/28/24 17:12 149/80 09/28/24 17:00 98.1 70 16 96 98.1 09/28/24 15:23 Room Air* 0 21 Intake and Output 09/27/24 09/28/24 19:00 07:00 Intake Total 300 ml 270 ml Balance 300 ml 270 ml IV Total 300 ml 270 ml Physical Exam Elderly female Not in overt distress Abdomen is soft No pitting edema Labs/Diagnostic Data Labs/Diagnostic Data Laboratory Tests Test 09/28/24 16:09 09/28/24 11:43 09/28/24 04:55 09/27/24 22:12 Range/Units POC Glucose 140 H 148 H 138 H 70-106 mg/dl Sodium Level 138 136-145 mmol/L Potassium Level 4.1 3.5-5.1 mmol/L Chloride Level 101 98-107 mmol/L Carbon Dioxide Level 27 20-31 mmol/L Anion Gap 10 5-15 Blood Urea Nitrogen 15 9-23 mg/dL Creatinine 5.74 H 0.550-1.02 mg/dL Glomerular Filtration Rate Calc 8 >90 mL/min BUN/Creatinine Ratio 2.6 L 10.0-20.0 Serum Glucose 83 74-106 mg/dL Hemoglobin A1c 4.9 <5.7 % A1C Calcium Level 7.5 L 8.7-10.4 mg/dL Magnesium Level 2.2 1.6-2.6 mg/dL Triglycerides Level 79 < 150 mg/dL Cholesterol Level 144 < 200 mg/dL LDL Cholesterol 47 < 100 mg/dL HDL Cholesterol 71 H 40-59 mg/dL Thyroid Stimulating Hormone (TSH) 2.93 0.55-4.78 uIU/mL Test 09/27/24 17:25 09/27/24 15:17 09/27/24 14:34 09/27/24 14:06 Range/Units Troponin I High Sensitivity 37 *H 36 *H 33 </=34 ng/L Sodium Level 137 136-145 mmol/L Potassium Level 3.9 3.5-5.1 mmol/L Chloride Level 99 98-107 mmol/L Carbon Dioxide Level 28 20-31 mmol/L Anion Gap 10 5-15 Blood Urea Nitrogen 13 9-23 mg/dL Creatinine 4.75 H 0.550-1.02 mg/dL Glomerular Filtration Rate Calc 10 >90 mL/min BUN/Creatinine Ratio 2.7 L 10.0-20.0 Serum Glucose 105 74-106 mg/dL Calcium Level 8.0 L 8.7-10.4 mg/dL B-Type Natriuretic Peptide 3799.05 0-100 pg/mL White Blood Count 3.8 L 4.4-10.8 10^3/uL Red Blood Count 2.77 L 4.0-5.20 10^6/uL Hemoglobin 9.7 L 12.2-16.2 g/dL Hematocrit 28.0 L 36.0-46.0 % Mean Corpuscular Volume 100.9 H 80.0-100.0 fL Mean Corpuscular Hemoglobin 34.8 H 28.0-32.0 pg Mean Corpuscular Hemoglobin Concent 34.5 32.0-36.0 g/dL Red Cell Distribution Width 15.6 H 11.8-14.3 % Platelet Count 156 140-450 10^3/uL Mean Platelet Volume 10.3 6.9-10.8 fL Neutrophils (%) (Auto) 71.7 37.0-80.0 % Lymphocytes (%) (Auto) 15.1 10.0-50.0 % Monocytes (%) (Auto) 10.2 0.0-12.0 % Eosinophils (%) (Auto) 1.9 0.0-7.0 % Basophils (%) (Auto) 1.1 0.0-2.0 % Neutrophils # (Auto) 2.7 1.6-8.6 10 ^3/uL Lymphocytes # (Auto) 0.6 0.4-5.4 10 ^3/uL Monocytes # (Auto) 0.4 0-1.3 10 ^3/uL Eosinophils # (Auto) 0.1 0-0.8 10 ^3/uL Basophils # (Auto) 0 0-0.2 10 ^3/uL Nucleated Red Blood Cells 0.0 % Assessment 58-year-old poorly compliant female with history of end-stage renal disease hypertension presents to the hospital with hypertensive emergency End-stage renal disease Hypertension Anemia due to chronic kidney disease Hemodialysis will be scheduled on Wednesday as per patient's outpatient schedule Home blood pressure medications were resumed including losartan, calcium channel aster, beta-aster. Low-salt renal diet Phosphorus binder Epogen 3 times a week. Rest of care as per primary medical team recommend secondary hypertension workup care time 55mins Plan discussed with: Patient TRACY LEW MD Sep 28, 2024 14:07
[2024-09-28] MEDS ORDERED: CARV3.1240 PO (14:10)
[2024-09-28] MEDS ORDERED: LOSA-535 PO (14:10)
[2024-09-28 15:23] VITALS: PULSE 70; RESP 17
[2024-09-28] MEDS: ACETAMINOPHEN 325 MG TAB PO PRN (16:07)
[2024-09-28 16:44] VITALS: PULSE 71
[2024-09-28 17:00] VITALS: BP 195/74; PULSE 70; RESP 16; TEMP 98.1; O2SAT 96
[2024-09-28 20:00] VITALS: PULSE 72; RESP 18; O2SAT 92
[2024-09-28 21:00] VITALS: BP 162/53; PULSE 72; RESP 18; TEMP 98.3; O2SAT 92
[2024-09-28] MEDS: ATORVASTATIN 20 MG TAB PO SCH (21:53)
[2024-09-28] MEDS: ZOLPIDEM TARTRATE 5 MG TAB PO PRN (21:54)
--- NOTE | 2024-09-28 23:26 | DVHINCON2 ---
Date Seen: Sep 28, 2024 Referring Physician LOIS Medina Reason for Consultation Hypertensive urgency, elevated troponin History of Present Illness This is a 58-year-old female with a past medical history of hypertension, end- stage renal disease on hemodialysis and type 2 diabetes mellitus who presents to the ED with a complaint of headache and ear ringing. The patient was undergoing hemodialysis and was noted to have blood pressures reaching as high as systolic greater than 200s. EMS was called and the patient was brought to the ED for further evaluation. Blood pressure upon ED arrival reached as high as 216/84. Cardiology has been consulted at this time for hypertensive emergency. Initial twelve lead electrocardiogram reveals normal sinus rhythm without any significant ST segment changes. Initial troponin level of 33ng/L with slight up trend and peak level at 37ng/L. The patient denies any cardiac symptoms such as chest pain, palpitations, or shortness of breath. The patient is not a good historian. Patient keeps falling asleep during interview. Medical history obtained from previous medical records and bedside RN. Patient denies following up with a intel analyst in the outpatient setting. Chest x-ray shows cardiomegaly with CHF. CT head revealed no intracranial hemorrhage or mass effect. Past Medical History Past medical history reviewed. No other significant than mentioned above. Past Surgical History Denies Family History: Hypertension G8 MOTHER G8 FATHER Allergies: Coded Allergies: Codeine (Verified Allergy, Unknown, 12/22/21) Lisinopril (Verified Allergy, Unknown, 10/13/18) Home Meds Active Scripts Calcium Carbonate (Calcium Carbonate) 500 Mg Chw, 500 MG PO BID for 30 Days, #60 TAB.CHEW Prov:JOE CORRAL MD 11/13/21 Reported Medications Carvedilol (Carvedilol) 3.125 Mg Tab, PO BID for 30 Days, MG 09/28/24 Losartan Potassium (Losartan Potassium) 100 Mg Tab, 1 TAB PO DAILY, #30 TAB 5 Refills 09/28/24 Zolpidem Tartrate (Zolpidem Tartrate) 5 Mg Tab, 1 TAB PO QPM, #30 TAB 2 Refills 12/24/21 Gabapentin (Neurontin) 300 Mg Cap, 1 CAP PO BID, #90 CAP 3 Refills 12/24/21 Hydrochlorothiazide (Hydrochlorothiazide) 25 Mg Tab, 25 MG PO DAILY for 30 Days, MG 12/24/21 Tramadol Hcl (Tramadol Hcl) 50 Mg Tab, 50 MG PO DAILY PRN for MODERATE PAIN (4-6 PAIN SCALE), MG 12/24/21 Lovastatin (Lovastatin) 20 Mg Tab, 1 TAB PO DAILY, #30 TAB 5 Refills 12/24/21 Current Medications Current Medications Medications (Trade) Dose Ordered Sig/Altagracia Route PRN Reason Start Time Stop Time Status Last Admin Labetalol HCl 250 mg/Sodium Chloride 250 ml @ 60 mls/hr Q4H10M IV 09/27/24 21:30 09/27/24 22:58 DC 09/27/24 21:30 Losartan Potassium (Cozaar Tablet) 100 mg DAILY PO 09/28/24 10:00 09/28/24 09:29 Furosemide (Lasix Tablet) 80 mg BIDD PO 09/28/24 06:00 09/28/24 05:58 Nifedipine (Procardia Xl (Time-Release)) 60 mg DAILY PO 09/28/24 10:00 09/27/24 23:11 DC Hydralazine HCl (Apresoline Tablet) 50 mg Q8HR PO 09/27/24 22:00 09/28/24 05:57 Hydralazine HCl (Apresoline Injection) 10 mg Q6HP PRN IV SBP>150 09/27/24 21:30 Gabapentin (Neurontin Capsule) 600 mg TID PO 09/27/24 22:00 09/28/24 05:57 Carvedilol (Coreg Tablet) 6.25 mg Q12HR PO 09/27/24 22:00 09/28/24 09:29 Diagnostic Test (Pha) (Accu-Chek Comfort Curve T) 1 strip ACHS 09/27/24 22:00 09/28/24 11:42 Insulin Human Regular (InsuLIN R) ACHS SC 09/27/24 22:00 09/28/24 11:58 Dextrose 50 ml UD PRN IV Blood Sugar LESS THAN 60 09/27/24 21:30 Ondansetron HCl (Zofran) 4 mg Q4HP PRN IV NAUSEA / VOMITING 09/27/24 21:30 Acetaminophen (Tylenol Tablet) 650 mg Q6HP PRN PO PAIN SCALE 1-3 OR TEMP>100.4 09/27/24 21:30 Nitroglycerin (Ntrostat Sublingual) 0.4 mg Q5MINP PRN SL FOR CHEST PAIN 09/27/24 21:30 Morphine Sulfate 2 mg Q30M PRN IV FOR CHEST PAIN 09/27/24 21:30 Hold Nicardipine/ Sodium Chloride 200 ml @ 50 mls/hr Q4H IV 09/27/24 23:00 09/28/24 03:58 DC 09/27/24 23:15 Atorvastatin Calcium (Lipitor) 20 mg HS PO 09/28/24 22:00 UNV Review of Systems Constitutional: No symptom reported Ears, Nose, & Throat: No symptom reported Eyes: No symptom reported Neurological: Headache Pulmonary/Respiratory: No symptoms reported Cardiovascular: No symptom reported Gastrointestinal: No symptom reported Genitourinary: No symptom reported Musculoskeletal: No symptom reported Skin: No symptom reported Psychiatric: No symptom reported Endocrine: No symptom reported Hematologic/Lymphatic: No symptom reported Vital Signs Vital Signs Date Time Temp Pulse Resp B/P (MAP) Pulse Ox O2 Delivery O2 Flow Rate FiO2 09/28/24 12:37 68 09/28/24 11:39 135/63 (87) 09/28/24 06:00 12 98 09/27/24 19:30 Room Air* 0 21 09/27/24 19:30 99.1 99.1 Physical Exam GENERAL: Alert and oriented x 3. No acute distress. EYES: PERRL, EOMI. Anicteric. HENT: Moist mucous membranes. LUNGS: Clear to auscultation bilaterally. CARDIOVASCULAR: Regular rate and rhythm. ABDOMEN: Soft, nontender and nondistended. EXTREMITIES: No edema. NEUROLOGIC: No focal neurological deficits. SKIN: Warm, dry. Labs/Diagnostic Data Labs Test 09/28/24 11:43 09/28/24 04:55 09/27/24 17:25 09/27/24 14:34 Range/Units POC Glucose 148 H 70-106 mg/dl Sodium Level 138 136-145 mmol/L Potassium Level 4.1 3.5-5.1 mmol/L Chloride Level 101 98-107 mmol/L Carbon Dioxide Level 27 20-31 mmol/L Anion Gap 10 5-15 Blood Urea Nitrogen 15 9-23 mg/dL Creatinine 5.74 H 0.550-1.02 mg/dL Glomerular Filtration Rate Calc 8 >90 mL/min BUN/Creatinine Ratio 2.6 L 10.0-20.0 Serum Glucose 83 74-106 mg/dL Hemoglobin A1c 4.9 <5.7 % A1C Calcium Level 7.5 L 8.7-10.4 mg/dL Magnesium Level 2.2 1.6-2.6 mg/dL Triglycerides Level 79 < 150 mg/dL Cholesterol Level 144 < 200 mg/dL LDL Cholesterol 47 < 100 mg/dL HDL Cholesterol 71 H 40-59 mg/dL Thyroid Stimulating Hormone (TSH) 2.93 0.55-4.78 uIU/mL Troponin I High Sensitivity 37 *H </=34 ng/L B-Type Natriuretic Peptide 3799.05 0-100 pg/mL Test 09/27/24 14:06 Range/Units White Blood Count 3.8 L 4.4-10.8 10^3/uL Red Blood Count 2.77 L 4.0-5.20 10^6/uL Hemoglobin 9.7 L 12.2-16.2 g/dL Hematocrit 28.0 L 36.0-46.0 % Mean Corpuscular Volume 100.9 H 80.0-100.0 fL Mean Corpuscular Hemoglobin 34.8 H 28.0-32.0 pg Mean Corpuscular Hemoglobin Concent 34.5 32.0-36.0 g/dL Red Cell Distribution Width 15.6 H 11.8-14.3 % Platelet Count 156 140-450 10^3/uL Mean Platelet Volume 10.3 6.9-10.8 fL Neutrophils (%) (Auto) 71.7 37.0-80.0 % Lymphocytes (%) (Auto) 15.1 10.0-50.0 % Monocytes (%) (Auto) 10.2 0.0-12.0 % Eosinophils (%) (Auto) 1.9 0.0-7.0 % Basophils (%) (Auto) 1.1 0.0-2.0 % Neutrophils # (Auto) 2.7 1.6-8.6 10 ^3/uL Lymphocytes # (Auto) 0.6 0.4-5.4 10 ^3/uL Monocytes # (Auto) 0.4 0-1.3 10 ^3/uL Eosinophils # (Auto) 0.1 0-0.8 10 ^3/uL Basophils # (Auto) 0 0-0.2 10 ^3/uL Nucleated Red Blood Cells 0.0 % Assessment Hypertensive emergency, resolved. NSTEMI type II, secondary to above. Rule out structural heart disease. Dyslipidemia. Acute on chronic anemia. End-stage renal disease on hemodialysis. Type 2 diabetes mellitus. Plan/Recommendation I agree with your ongoing assessment and care of plan. Patient has been seen by Nickie Duque NP on my behalf, her and I discussed the plan with the patient. We will proceed with obtaining a transthoracic echocardiogram to evaluate cardiac function. Continue with aggressive blood pressure control as tolerated and up-titrate as needed. Continue with lipid-lowering agent. Continue with close cardiac surveillance and notify cardiology team immediately for any ECG changes. Additional plan as per the hospital course. Plan discussed with: Patient NYHA Physical activity limitations: NA Date of Service: Sep 28, 2024 Billing Provider: FIORDALIZA CHAHAL MD Cardiology Common Codes: [id number] INP/OBS CARE (High) Cardiology Consultation Codes: [id number] CONSULT <45MIN FIORDALIZA CHAHAL MD Sep 28, 2024 13:01
[2024-09-29] VITALS (9 sets, daily range): BP systolic 139–204; BP diastolic 71–92; PULSE 71–79; RESP 16–18; TEMP 97.6–98.6; O2SAT 91–98
--- NOTE | 2024-09-29 00:17 | DVHSR ---
APPROVED REPORT EXAM: Two-dimensional and M-mode echocardiogram with Doppler and color Doppler. Blood Pressure: 165/69 mmHg INDICATION Chest Pain RISK FACTORS Height: 5' 5", Weight: 149 DIMENSIONS LVDd4.7 (3.8-5.7cm)LA (2D)4.7 (1.9-4.0cm)Aortic Root2.8 (2.0-3.7cm) LVDs3.3 (2.5-4.0cm)LA (MM) (1.9-4.0cm)Aortic Cusp Exc1.5 (1.5-2.0cm) EF (%) 55.0 (55-70%)Rt. Atrium4.6 (1.9-4.0cm)Asc. Aorta cm IVSd1.7 (0.7-1.1cm)RV (D) (1.8-2.4cm) PWd1.5 (0.7-1.1cm) Mitral Valve MitralMitral Stenosis E wave1.30m/sMV Mean GR.mmHg A wave1.10m/sMV Peak GR.mmHg E/A ratio1.22D MVAcm2 Aortic Valve Aortic ValveAortic Stenosis V11.10m/Gallito Mean GR.9mmHg V21.90m/Gallito Peak GR.16mmHg LVOT Diameter1.9 (1.8-2.4cm)Doppler AVA1.64cm2 Pulmonic Valve V20.50m/s Tricuspid Valve TR Velocity4.10m/s [id number] Conclusion SEVERE LVH AND SEVERE LV DIASTOLIC DYSFUNCTION LV EF IS 60% CRITICAL PULMONARY HYPERTENSION RVSP IS 80 MM OF HG AND IS EXREMELY HIGH MILD POSTERIOR PERICARDIAL EFFUSION NORMAL VALVES
[2024-09-29] MEDS: hydrALAZINE HCL 20 MG/ML VL IV PRN (02:10)
[2024-09-29] MEDS ORDERED: SODIUM CHL 0.9% 1000 ML BAG XX ONE (07:00)
[2024-09-29] MEDS: CALCIUM ACETATE 667 MG CAP PO SCH (09:00)
[2024-09-29] MEDS: EPOETIN ALFA-EPBX 10,000 UNIT/1ML VIAL SC SCH (09:45)
[2024-09-29 09:58] LABS: Hematocrit 28.6 % (36.0-46.0); Hemoglobin 9.5 g/dL (12.2-16.2); Mean Corpuscular Hemoglobin 34.0 pg (28.0-32.0); Mean Corpuscular Volume 102.6 fL (80.0-100.0); Nucleated Red Blood Cells % 0.3 %
[2024-09-29] MEDS: CARVEDILOL 3.125 MG TAB PO ONE (10:11)
[2024-09-29 10:12] LABS: Chloride 100 mmol/L (98-107); Potassium 4.7 mmol/L (3.5-5.1); Sodium 140 mmol/L (136-145)
[2024-09-29 10:13] LABS: Anion Gap 12 (5-15); Carbon Dioxide 28 mmol/L (20-31)
[2024-09-29 10:18] LABS: BUN/Creatinine Ratio 4.2 (10.0-20.0)
[2024-09-29 10:19] LABS: Magnesium 2.3 mg/dL (1.6-2.6)
[2024-09-29 10:21] LABS: Iron 66.0 ug/dL (50-170)
[2024-09-29 10:44] LABS: Blood Urea Nitrogen 29 mg/dL (9-23); Calcium 8.2 mg/dL (8.7-10.4); Glucose 106 mg/dL (74-106)
[2024-09-29 10:52] LABS: Total Iron Binding Capacity 212.0 ug/dL (250-425)
[2024-09-29] MEDS: ONDANSETRON HCL 4 MG/2 ML VIAL IV PRN (10:55)
--- NOTE | 2024-09-29 11:20 | DVHPN2 ---
Progress Note Date Seen: Sep 29, 2024 Medical Necessity Reason Pt with a Central, PICC or Fol: No Subjective Patient reports: No new complaints Other Systems: Patient seen and examined by myself today in follow-up Patient examined hemodialysis, blood pressure stable Objective vital signs Vital Sign Date Time Temp Pulse Resp B/P (MAP) Pulse Ox O2 Delivery O2 Flow Rate FiO2 09/29/24 09:02 156/83 09/29/24 09:01 83 09/29/24 09:00 97.9 16 93 97.9 09/29/24 08:00 Room Air* 0 21 Total Intake and Output 09/28/24 09/28/24 09/29/24 15:00 23:00 07:00 Intake Total 100 ml 200 ml Balance 100 ml 200 ml medications Current Medications Medications Dose Ordered Sig/Altagracia Route Start Time Stop Time Status Last Admin Dose Admin Losartan Potassium 100 mg DAILY PO 09/28/24 10:00 09/29/24 09:02 100 MG Furosemide 80 mg BIDD PO 09/28/24 06:00 09/29/24 05:33 80 MG Hydralazine HCl 50 mg Q8HR PO 09/27/24 22:00 09/29/24 05:34 50 MG Hydralazine HCl 10 mg Q6HP PRN IV 09/27/24 21:30 09/29/24 02:10 10 MG Gabapentin 600 mg TID PO 09/27/24 22:00 09/29/24 05:33 600 MG Diagnostic Test (Pha) 1 strip ACHS 09/27/24 22:00 09/29/24 06:30 1 STRIP Insulin Human Regular ACHS SC 09/27/24 22:00 09/28/24 11:58 2 UNITS Dextrose 50 ml UD PRN IV 09/27/24 21:30 Ondansetron HCl 4 mg Q4HP PRN IV 09/27/24 21:30 09/29/24 10:55 4 MG Acetaminophen 650 mg Q6HP PRN PO 09/27/24 21:30 09/28/24 16:07 650 MG Nitroglycerin 0.4 mg Q5MINP PRN SL 09/27/24 21:30 Morphine Sulfate 2 mg Q30M PRN IV 09/27/24 21:30 Hold Atorvastatin Calcium 20 mg HS PO 09/28/24 22:00 09/28/24 21:53 20 MG Epoetin Erick-epbx 10,000 unit MWF SC 09/29/24 10:00 09/29/24 09:45 10,000 UNIT Calcium Acetate 667 mg TIDWMEALS PO 09/29/24 08:00 09/29/24 09:00 667 MG Zolpidem Tartrate 5 mg HSPRN PRN PO 09/28/24 21:00 09/28/24 21:54 5 MG Carvedilol 12.5 mg Q12HR PO 09/29/24 22:00 Examination: LUNGS:Normal, CVS:Normal, MSK:Normal laboratory and microbiology Laboratory Tests 09/29/24 08:33 Test 09/29/24 08:33 Range/Units Serum Glucose 106 74-106 mg/dL Problem List/Assessment/Plan Problem List/Assessment/Plan End-stage renal disease on hemodialysis Hypertension hypertensive urgency Chronic diastolic Congestive heart failure NSTEMI Anemia due to chronic kidney disease Recommendations Continue with UF to 3 L as tolerated Epogen 43490 subQ 3 times weekly Strict I&Os Renal diet Resume home medication Blood pressure control Cardiology consult We will continue to follow up Plan discussed with: Patient JOSIAS WASSERMAN MD Sep 29, 2024 11:20
[2024-09-29 12:32] LABS: Hepatitis B Surface Antigen Negative (Negative); Hepatitis C Antibody Negative (Negative)
[2024-09-29] MEDS: MAALOX PLUS or MAALOX 30 ML PO ONE (15:11)
[2024-09-29] MEDS: PANTOPRAZOLE 40 MG TAB PO ONE (15:11)
--- NOTE | 2024-09-29 16:20 | DVHPN2 ---
Subjective Better BP Changes from previous H/P or p: Changes Objective Vitals Vital Signs Date Time Temp Pulse Resp B/P (MAP) Pulse Ox O2 Delivery O2 Flow Rate FiO2 09/29/24 15:12 148/75 09/29/24 13:00 98.3 76 16 98 98.3 09/29/24 08:00 Room Air* 0 21 Intake/Output Intake and Output 09/29/24 07:00 Intake Total 300 ml Balance 300 ml Intake Oral 300 ml General Appearance: Alert, Oriented X3, Cooperative Lungs: Clear to auscultation, Normal air movement Cardiovascular: Regular rate, Normal S1, Normal S2 Abdomen: Normal bowel sounds, Soft, No tenderness Extremities: No edema Medications Current Medications Medications Dose Ordered Sig/Altagracia Route Start Time Stop Time Status Last Admin Dose Admin Losartan Potassium 100 mg DAILY PO 09/28/24 10:00 09/29/24 09:02 100 MG Furosemide 80 mg BIDD PO 09/28/24 06:00 09/29/24 05:33 80 MG Hydralazine HCl 50 mg Q8HR PO 09/27/24 22:00 09/29/24 15:12 50 MG Hydralazine HCl 10 mg Q6HP PRN IV 09/27/24 21:30 09/29/24 02:10 10 MG Gabapentin 600 mg TID PO 09/27/24 22:00 09/29/24 15:11 600 MG Diagnostic Test (Pha) 1 strip ACHS 09/27/24 22:00 09/29/24 11:47 1 STRIP Insulin Human Regular ACHS SC 09/27/24 22:00 09/28/24 11:58 2 UNITS Dextrose 50 ml UD PRN IV 09/27/24 21:30 Ondansetron HCl 4 mg Q4HP PRN IV 09/27/24 21:30 09/29/24 10:55 4 MG Acetaminophen 650 mg Q6HP PRN PO 09/27/24 21:30 09/28/24 16:07 650 MG Nitroglycerin 0.4 mg Q5MINP PRN SL 09/27/24 21:30 Morphine Sulfate 2 mg Q30M PRN IV 09/27/24 21:30 Hold Atorvastatin Calcium 20 mg HS PO 09/28/24 22:00 09/28/24 21:53 20 MG Epoetin Erick-epbx 10,000 unit MWF SC 09/29/24 10:00 09/29/24 09:45 10,000 UNIT Calcium Acetate 667 mg TIDWMEALS PO 09/29/24 08:00 09/29/24 11:53 667 MG Zolpidem Tartrate 5 mg HSPRN PRN PO 09/28/24 21:00 09/28/24 21:54 5 MG Carvedilol 12.5 mg Q12HR PO 09/29/24 22:00 Pantoprazole Sodium 40 mg DAILY@0600 PO 09/30/24 06:00 Laboratory Results Laboratory Tests 09/29/24 08:33 Chemistry Test 09/29/24 08:33 Calcium Level 8.2 mg/dL (8.7-10.4) L Magnesium Level 2.3 mg/dL (1.6-2.6) Phosphorus Level 6.3 mg/dL (2.4-5.1) H Assessment/Plan Assessment/Plan Hypertensive emergency Rule out structural heart disease Dyslipidemia Anemia of chronic kidney disease End-stage renal disease on hemodialysis Type 2 diabetes mellitus Severe pulmonary hypertension Plan Resume home medications Hemodialysis per nephrology Echocardiogram showed EF 60% Severe pulmonary hypertension Plan discussed with: Patient My Orders Orders - MAX BETANCOURT MD Procedure Category Date Status Time Basic Metabolic Panel LAB 09/30/24 Verified 04:00 Magnesium LAB 09/30/24 Verified 04:00 Carvedilol Tablet PHA 09/29/24 In Process (Coreg Tablet) 22:00 Pantoprazole Tablet PHA 09/30/24 In Process (Protonix Tablet) 06:00 Date of Service: Sep 29, 2024 Billing Provider: MAX BETANCOURT MD Common Visit Codes: NOT BILLABLE MAX BETANCOURT MD Sep 29, 2024 16:20
--- NOTE | 2024-09-29 19:41 | DVHPN2 ---
Progress Note - Dictate Date Seen: Sep 29, 2024 Medical Necessity Reason Pt with a Central, PICC or Fol: No Subjective Patient was seen and evaluated in follow up. No overnight events. Patient received HD today. HGB 9.5, HCT 28.6, BUN 29, BOBBIN COIL WINDER 6.96, CA 8.2. Echocardiogram is pending. Telemetry reviewed. vital signs Vital Sign Date Time Temp Pulse Resp B/P (MAP) Pulse Ox O2 Delivery O2 Flow Rate FiO2 09/29/24 17:11 144/98 09/29/24 17:10 97.8 79 16 92 97.8 09/29/24 08:00 Room Air* 0 21 Total Intake and Output 09/28/24 09/28/24 09/29/24 15:00 23:00 07:00 Intake Total 100 ml 200 ml Balance 100 ml 200 ml medications Current Medications Medications Dose Ordered Sig/Altagracia Route Start Time Stop Time Status Last Admin Dose Admin Losartan Potassium 100 mg DAILY PO 09/28/24 10:00 09/29/24 09:02 100 MG Furosemide 80 mg BIDD PO 09/28/24 06:00 09/29/24 17:11 80 MG Hydralazine HCl 50 mg Q8HR PO 09/27/24 22:00 09/29/24 15:12 50 MG Hydralazine HCl 10 mg Q6HP PRN IV 09/27/24 21:30 09/29/24 02:10 10 MG Gabapentin 600 mg TID PO 09/27/24 22:00 09/29/24 15:11 600 MG Diagnostic Test (Pha) 1 strip ACHS 09/27/24 22:00 09/29/24 16:24 1 STRIP Insulin Human Regular ACHS SC 09/27/24 22:00 09/28/24 11:58 2 UNITS Dextrose 50 ml UD PRN IV 09/27/24 21:30 Ondansetron HCl 4 mg Q4HP PRN IV 09/27/24 21:30 09/29/24 10:55 4 MG Acetaminophen 650 mg Q6HP PRN PO 09/27/24 21:30 09/28/24 16:07 650 MG Nitroglycerin 0.4 mg Q5MINP PRN SL 09/27/24 21:30 Morphine Sulfate 2 mg Q30M PRN IV 09/27/24 21:30 Hold Atorvastatin Calcium 20 mg HS PO 09/28/24 22:00 09/28/24 21:53 20 MG Epoetin Erick-epbx 10,000 unit MWF SC 09/29/24 10:00 09/29/24 09:45 10,000 UNIT Calcium Acetate 667 mg TIDWMEALS PO 09/29/24 08:00 09/29/24 17:11 667 MG Zolpidem Tartrate 5 mg HSPRN PRN PO 09/28/24 21:00 09/28/24 21:54 5 MG Carvedilol 12.5 mg Q12HR PO 09/29/24 22:00 Pantoprazole Sodium 40 mg DAILY@0600 PO 09/30/24 06:00 Tramadol HCl 50 mg Q12HP PRN PO 09/29/24 16:30 objective GENERAL: Alert and oriented x 3. No acute distress. EYES: PERRL, EOMI. Anicteric. HENT: Moist mucous membranes. LUNGS: Clear to auscultation bilaterally. CARDIOVASCULAR: Regular rate and rhythm. ABDOMEN: Soft, nontender and nondistended. EXTREMITIES: No edema. NEUROLOGIC: No focal neurological deficits. SKIN: Warm, dry. laboratory and microbiology Laboratory Tests 09/29/24 08:33 Test 09/29/24 08:33 Range/Units Serum Glucose 106 74-106 mg/dL Problem List Hypertensive emergency, resolved. NSTEMI type II, secondary to above. Rule out structural heart disease. Dyslipidemia. Acute on chronic anemia. End-stage renal disease on hemodialysis. Type 2 diabetes mellitus. Assessment/Plan Continued all current supportive medical care. Lipitor. Coreg, Hydralazine, Losartan. Diuretics with Lasix. IV Hydralazine for SBP > 160. GI prophylactics. Additional plan as per the hospital course. Plan discussed with: Patient FIORDALIZA CHAHAL MD Sep 29, 2024 18:18
[2024-09-29] MEDS: CARVEDILOL 12.5 MG TAB PO SCH (21:19)
[2024-09-30 01:00] VITALS: BP 139/76; PULSE 71; RESP 17; TEMP 97.3; O2SAT 95
[2024-09-30 05:00] VITALS: BP 149/73; PULSE 70; RESP 15; TEMP 97.9; O2SAT 94
[2024-09-30] MEDS: PANTOPRAZOLE 40 MG TAB PO SCH (05:34)
[2024-09-30 07:28] LABS: Anion Gap 11 (5-15); Carbon Dioxide 29 mmol/L (20-31); Chloride 99 mmol/L (98-107); Potassium 4.0 mmol/L (3.5-5.1); Sodium 139 mmol/L (136-145)
[2024-09-30 07:32] LABS: Calcium 8.3 mg/dL (8.7-10.4)
[2024-09-30 07:35] LABS: BUN/Creatinine Ratio 3.1 (10.0-20.0); Blood Urea Nitrogen 16 mg/dL (9-23); Glucose 166 mg/dL (74-106); Magnesium 2.2 mg/dL (1.6-2.6)
[2024-09-30 08:00] VITALS: PULSE 75; PULSE 98; RESP 17
[2024-09-30 09:00] VITALS: BP 188/98; PULSE 71; RESP 19; TEMP 97.8; O2SAT 97
[2024-09-30] MEDS ORDERED: CARV-216 PO (10:21)
[2024-09-30] MEDS ORDERED: HYDR50TA47 PO (10:21)
[2024-09-30] MEDS ORDERED: LOSA-535 PO (10:21)
--- NOTE | 2024-09-30 10:21 | DVHPN2 ---
Progress Note Date Seen: Sep 30, 2024 Medical Necessity Reason Pt with a Central, PICC or Fol: No Subjective Patient reports: No new complaints Other Systems: Patient seen and examined by myself today in follow-up Objective vital signs Vital Sign Date Time Temp Pulse Resp B/P (MAP) Pulse Ox O2 Delivery O2 Flow Rate FiO2 09/30/24 09:25 74 164/92 09/30/24 09:00 97.8 19 97 97.8 09/30/24 08:00 Room Air* 0 21 Total Intake and Output 09/29/24 09/29/24 09/30/24 15:00 23:00 07:00 Intake Total 170 ml 100 ml Balance 170 ml 100 ml medications Current Medications Medications Dose Ordered Sig/Altagracia Route Start Time Stop Time Status Last Admin Dose Admin Losartan Potassium 100 mg DAILY PO 09/28/24 10:00 09/30/24 09:25 100 MG Furosemide 80 mg BIDD PO 09/28/24 06:00 09/30/24 05:33 80 MG Hydralazine HCl 50 mg Q8HR PO 09/27/24 22:00 09/30/24 05:34 50 MG Hydralazine HCl 10 mg Q6HP PRN IV 09/27/24 21:30 09/29/24 22:39 10 MG Gabapentin 600 mg TID PO 09/27/24 22:00 09/30/24 05:33 600 MG Diagnostic Test (Pha) 1 strip ACHS 09/27/24 22:00 09/30/24 06:08 1 STRIP Insulin Human Regular ACHS SC 09/27/24 22:00 09/30/24 06:10 3 UNITS Dextrose 50 ml UD PRN IV 09/27/24 21:30 Ondansetron HCl 4 mg Q4HP PRN IV 09/27/24 21:30 09/29/24 10:55 4 MG Acetaminophen 650 mg Q6HP PRN PO 09/27/24 21:30 09/30/24 08:14 650 MG Nitroglycerin 0.4 mg Q5MINP PRN SL 09/27/24 21:30 Morphine Sulfate 2 mg Q30M PRN IV 09/27/24 21:30 Hold Atorvastatin Calcium 20 mg HS PO 09/28/24 22:00 09/29/24 21:15 20 MG Epoetin Erick-epbx 10,000 unit MWF SC 09/29/24 10:00 09/29/24 09:45 10,000 UNIT Calcium Acetate 667 mg TIDWMEALS PO 09/29/24 08:00 09/30/24 09:24 667 MG Zolpidem Tartrate 5 mg HSPRN PRN PO 09/28/24 21:00 09/29/24 21:20 5 MG Carvedilol 12.5 mg Q12HR PO 09/29/24 22:00 09/30/24 09:25 12.5 MG Pantoprazole Sodium 40 mg DAILY@0600 PO 09/30/24 06:00 09/30/24 05:34 40 MG Tramadol HCl 50 mg Q12HP PRN PO 09/29/24 16:30 Examination: LUNGS:Normal, CVS:Normal, MSK:Normal laboratory and microbiology Laboratory Tests 09/30/24 06:50 09/29/24 08:33 Test 09/30/24 06:50 Range/Units Serum Glucose 166 H 74-106 mg/dL Problem List/Assessment/Plan Problem List/Assessment/Plan End-stage renal disease on hemodialysis Hypertension hypertensive urgency Chronic diastolic Congestive heart failure NSTEMI Anemia due to chronic kidney disease Recommendations Next hemodialysis 10/02 Epogen 60828 subQ 3 times weekly Strict I&Os Renal diet Resume home medication Blood pressure control Cardiology consult We will continue to follow up Plan discussed with: Patient JOSIAS WASSERMAN MD Sep 30, 2024 10:21
[2024-09-30 11:08] VITALS: BP 157/76; PULSE 74; RESP 18; TEMP 36.6; O2SAT 95
--- NOTE | 2024-09-30 12:12 | DVHDS2 ---
Discharge Summary Date of Admission Sep 27, 2024 at 21:26 Date of Discharge: Sep 30, 2024 Labs/Diagnostic Data: Laboratory Results Test 09/30/24 06:50 09/30/24 06:03 09/29/24 08:33 09/28/24 04:55 Sodium Level 139 mmol/L (136-145) Potassium Level 4.0 mmol/L (3.5-5.1) Chloride Level 99 mmol/L (98-107) Carbon Dioxide Level 29 mmol/L (20-31) Anion Gap 11 (5-15) Blood Urea Nitrogen 16 mg/dL (9-23) Creatinine 5.13 mg/dL (0.550-1.02) Glomerular Filtration Rate Calc 9 mL/min (>90) BUN/Creatinine Ratio 3.1 (10.0-20.0) Serum Glucose 166 mg/dL (74-106) Calcium Level 8.3 mg/dL (8.7-10.4) Magnesium Level 2.2 mg/dL (1.6-2.6) POC Glucose 169 mg/dl (70-106) White Blood Count 5.3 10^3/uL (4.4-10.8) Red Blood Count 2.79 10^6/uL (4.0-5.20) Hemoglobin 9.5 g/dL (12.2-16.2) Hematocrit 28.6 % (36.0-46.0) Mean Corpuscular Volume 102.6 fL (80.0-100.0) Mean Corpuscular Hemoglobin 34.0 pg (28.0-32.0) Mean Corpuscular Hemoglobin Concent 33.2 g/dL (32.0-36.0) Red Cell Distribution Width 16.4 % (11.8-14.3) Platelet Count 146 10^3/uL (140-450) Mean Platelet Volume 9.8 fL (6.9-10.8) Neutrophils (%) (Auto) 63.8 % (37.0-80.0) Lymphocytes (%) (Auto) 17.1 % (10.0-50.0) Monocytes (%) (Auto) 14.9 % (0.0-12.0) Eosinophils (%) (Auto) 2.9 % (0.0-7.0) Basophils (%) (Auto) 1.3 % (0.0-2.0) Neutrophils # (Auto) 3.4 10 ^3/uL (1.6-8.6) Lymphocytes # (Auto) 0.9 10 ^3/uL (0.4-5.4) Monocytes # (Auto) 0.8 10 ^3/uL (0-1.3) Eosinophils # (Auto) 0.2 10 ^3/uL (0-0.8) Basophils # (Auto) 0.1 10 ^3/uL (0-0.2) Nucleated Red Blood Cells 0.3 % Phosphorus Level 6.3 mg/dL (2.4-5.1) Iron Level 66 ug/dL (50-170) Total Iron Binding Capacity 212 ug/dL (250-425) Percent Iron Saturation 31.1 % (15-50) Ferritin 494.6 ng/mL (10-291) Hepatitis A IgM Antibody Negative Hepatitis B Surface Antigen Negative (Negative) Hepatitis B Core IgM Antibody Negative (Negative) Hepatitis C Antibody Negative (Negative) Hemoglobin A1c 4.9 % A1C (<5.7) Triglycerides Level 79 mg/dL (< 150) Cholesterol Level 144 mg/dL (< 200) LDL Cholesterol 47 mg/dL (< 100) HDL Cholesterol 71 mg/dL (40-59) Thyroid Stimulating Hormone (TSH) 2.93 uIU/mL (0.55-4.78) Test 09/27/24 17:25 09/27/24 14:34 Troponin I High Sensitivity 37 ng/L (</=34) B-Type Natriuretic Peptide 3799.05 pg/mL (0-100) Other Laboratory Tests 09/30/24 06:50 09/29/24 08:33 Brief Hx & Hospital Course: Final diagnoses: Hypertensive emergency Dyslipidemia Anemia of chronic kidney disease End-stage renal disease on hemodialysis Type 2 diabetes mellitus Severe pulmonary hypertension She was admitted after she was found to be hypertensive at dialysis Her home medications were resumed Coreg was increased Hydralazine was resume Blood pressure improved slowly Hemodialysis was continued Her headache improved Today she is asymptomatic Latest blood pressure check today was 149/91 And 149/73 in the morning She had dialysis yesterday He has she can be discharged home to follow up as an outpatient Increase Coreg to 12.5 mg twice a day and hydralazine 50 mg 3 times a day and losartan 100 mg daily Condition at Discharge: Stable Final Diagnosis/Problems List Hypertensive emergency Dyslipidemia Anemia of chronic kidney disease End-stage renal disease on hemodialysis Type 2 diabetes mellitus Severe pulmonary hypertension Discharge Disposition: Home SNF Discharge Will this Physician continue t: No Discharge Instruct/Medications Diet: Consistent carbohydrate, Cardiac 2g Na,low cholest, Renal Activity: No Restrictions, As Tolerated Follow Up/Referral: HD on 10/02 PCP [facility] Medications: Coreg 12.5 mg bid Hydralazine 50 mg tid Losartan 100 mg qd HCTZ 25 mg qd Scheduled Calcium Carbonate (Calcium Carbonate), 500 MG PO BID Carvedilol (Coreg), 12.5 MG PO Q12HR Gabapentin (Neurontin), 1 CAP PO BID, (Reported) Hydralazine Hcl (Hydralazine Hcl), 1 TAB PO TID Hydrochlorothiazide (Hydrochlorothiazide), 25 MG PO DAILY, (Reported) Losartan Potassium (Losartan Potassium), 1 TAB PO DAILY Lovastatin (Lovastatin), 1 TAB PO DAILY, (Reported) Zolpidem Tartrate (Zolpidem Tartrate), 1 TAB PO QPM, (Reported) Scheduled PRN Tramadol Hcl (Tramadol Hcl), 50 MG PO DAILY PRN for MODERATE PAIN (4-6 PAIN SCALE), (Reported) Discontinued Medications Carvedilol (Carvedilol), Unknown Dose PO BID, (Reported) Discharge Statement: "Patient was advised to return to the ER or call 911 if any headaches, dizziness, shortness of breath, chest pain, abdominal pain, bleeding, fevers, or worsening of medical condition. Patient was counseled about treatment plan, medications, possible side effects, patientverbalized understanding. All questions were answered to the best of my ability. This discharge took greater then 30 minutes in planning, reviewing documentation, counseling the patient, and discussing with other team members." ASSESSMENT ASSESSMENT Assessment Hypertensive emergency Dyslipidemia Anemia of chronic kidney disease End-stage renal disease on hemodialysis Type 2 diabetes mellitus Severe pulmonary hypertension Date of Service: Sep 30, 2024 Billing Provider: MAX BETANCOURT MD Common Visit Codes: NOT BILLABLE MAX BETANCOURT MD Sep 30, 2024 12:11
[2024-09-30 12:36] VITALS: BP 142/69; PULSE 71; RESP 16; TEMP 98.5; O2SAT 96
--- NOTE | 2024-09-30 23:21 | DVHPN2 ---
Progress Note - Dictate Date Seen: Sep 30, 2024 Medical Necessity Reason Pt with a Central, PICC or Fol: No Subjective Patient was seen and evaluated in follow up. Patient has no new complaints at this time. Patient denies any cardiac symptoms. Patient is cardiac stable for discharge. Telemetry reviewed. vital signs Vital Sign Date Time Temp Pulse Resp B/P (MAP) Pulse Ox O2 Delivery O2 Flow Rate FiO2 09/30/24 12:36 98.5 71 16 142/69 (93) 96 98.5 09/30/24 08:00 Room Air* 0 21 Total Intake and Output 09/29/24 09/29/24 09/30/24 15:00 23:00 07:00 Intake Total 170 ml 100 ml Balance 170 ml 100 ml medications Current Medications Medications Dose Ordered Sig/Altagracia Route Start Time Stop Time Status Last Admin Dose Admin Losartan Potassium 100 mg DAILY PO 09/28/24 10:00 09/30/24 09:25 100 MG Furosemide 80 mg BIDD PO 09/28/24 06:00 09/30/24 05:33 80 MG Hydralazine HCl 50 mg Q8HR PO 09/27/24 22:00 09/30/24 05:34 50 MG Hydralazine HCl 10 mg Q6HP PRN IV 09/27/24 21:30 09/29/24 22:39 10 MG Gabapentin 600 mg TID PO 09/27/24 22:00 09/30/24 05:33 600 MG Diagnostic Test (Pha) 1 strip ACHS 09/27/24 22:00 09/30/24 06:08 1 STRIP Insulin Human Regular ACHS SC 09/27/24 22:00 09/30/24 06:10 3 UNITS Dextrose 50 ml UD PRN IV 09/27/24 21:30 Ondansetron HCl 4 mg Q4HP PRN IV 09/27/24 21:30 09/29/24 10:55 4 MG Acetaminophen 650 mg Q6HP PRN PO 09/27/24 21:30 09/30/24 08:14 650 MG Nitroglycerin 0.4 mg Q5MINP PRN SL 09/27/24 21:30 Morphine Sulfate 2 mg Q30M PRN IV 09/27/24 21:30 Hold Atorvastatin Calcium 20 mg HS PO 09/28/24 22:00 09/29/24 21:15 20 MG Epoetin Erick-epbx 10,000 unit MWF SC 09/29/24 10:00 09/29/24 09:45 10,000 UNIT Calcium Acetate 667 mg TIDWMEALS PO 09/29/24 08:00 09/30/24 09:24 667 MG Zolpidem Tartrate 5 mg HSPRN PRN PO 09/28/24 21:00 09/29/24 21:20 5 MG Carvedilol 12.5 mg Q12HR PO 09/29/24 22:00 09/30/24 09:25 12.5 MG Pantoprazole Sodium 40 mg DAILY@0600 PO 09/30/24 06:00 09/30/24 05:34 40 MG Tramadol HCl 50 mg Q12HP PRN PO 09/29/24 16:30 objective GENERAL: Alert and oriented x 3. No acute distress. EYES: PERRL, EOMI. Anicteric. HENT: Moist mucous membranes. LUNGS: Clear to auscultation bilaterally. CARDIOVASCULAR: Regular rate and rhythm. ABDOMEN: Soft, nontender and nondistended. EXTREMITIES: No edema. NEUROLOGIC: No focal neurological deficits. SKIN: Warm, dry. laboratory and microbiology Laboratory Tests 09/30/24 06:50 09/29/24 08:33 Test 09/30/24 06:50 Range/Units Serum Glucose 166 H 74-106 mg/dL Problem List Hypertensive emergency, resolved. NSTEMI type II, secondary to above. Rule out structural heart disease. Dyslipidemia. Acute on chronic anemia. End-stage renal disease on hemodialysis. Type 2 diabetes mellitus. Assessment/Plan Continued all current supportive medical care. Coreg, Hydralazine, Losartan. Diuretics with Lasix. IV Hydralazine for SBP > 160. GI prophylactics. Additional plan as per the hospital course. Plan discussed with: Patient FIORDALIZA CHAHAL MD Sep 30, 2024 12:47
== END 2024-09-30 12:35 | disposition home or self-care (01) | DRG 304 ==
LOC: EDBD 13:41 → ER 13:41 → OVERFLOW 21:26 → TELE-WESTW 09-28 14:44
PROVIDERS: ADMIT Internal Medicine Geriatric Medicine; ATTEND Internal Medicine Geriatric Medicine
DX: I16.1 Hypertensive emergency (principal); N18.6 End stage renal disease; I50.32 Chronic diastolic (congestive) heart failure; D63.1 Anemia in chronic kidney disease; E78.5 Hyperlipidemia, unspecified; E11.22 Type 2 diabetes mellitus with diabetic chronic kidney disease; I27.20 Pulmonary hypertension, unspecified; I13.2 Hypertensive heart and chronic kidney disease with heart failure and with stage 5 chronic kidney disease, or end stage renal disease; Z88.5 Allergy status to narcotic agent; Z99.2 Dependence on renal dialysis; Z98.891 History of uterine scar from previous surgery; Z82.49 Family history of ischemic heart disease and other diseases of the circulatory system; Z83.3 Family history of diabetes mellitus; Z91.158 Patient's noncompliance with renal dialysis for other reason
CPT/HCPCS: 36415; 70450; 71045; 80048; 80061; 80074; 82728; 82962; 83036; 83540; 83550; 83735; 83880; 84100; 84443; 84484; 85025; 90935; 93005; 93306; 96365; 99291; G0378; J1815; J2405

== ENCOUNTER 2024-11-11 12:42 | Emergency (ER) | payer OTHER ==
[~2024-11-11] VITALS: Ht 160 cm; Wt 72.0 kg
[~2024-11-11 12:42] MED LIST changes: +CARV-216 PO; +HYDR50TA47 PO; +LOSA-535 PO
--- NOTE | 2024-11-11 14:49 | DVH ---
CLINICAL INDICATION: fall injury TECHNIQUE: 3 radiographic views of the right elbow were obtained. Comparison: None FINDINGS/IMPRESSION: Normal bony alignment Small joint effusion. No dislocation.
--- NOTE | 2024-11-11 14:53 | DVH ---
CLINICAL INDICATION: fall injury TECHNIQUE: 3 radiographic views of the left wrist were obtained. Comparison: None FINDINGS/IMPRESSION: Bony alignment is normal No fracture or dislocation Thin curvilinear calcification in the soft tissues adjacent to the styloid process of the distal radi us. May represent vascular calcifications from the radial artery or small avulsion fracture off the d istal radius no prior studies for comparison.
--- NOTE | 2024-11-11 16:18 | ED.PDOC ---
Bassem. trauma (HPI) HPI Comments HPI: Vincent 59 y.o female presents to the ED for a chief complaint of upper extremity pain s/p falling twice. Patient reports slipping at home last night and this morning ambulating to the bathroom. She states wearing socks that were slippery, causing her to slip and fall with no dizziness or lightheadedness present. Patient complains of left wrist and elbow pain. Has minimal swelling to left wrist with tenderness on palpation. Patient also complains of bilateral elbow pain, stating on her second fall her elbow slammed against the floor. She denies any head injuries, LOC, or any other symptoms. She denies using blood thinners ESRD hx states last dialysis was on 11/08/24Wednesday, missing yesterday's session as she was out of town. Past Medical History: ESRD Dialysis M,W,F. HTN, DM, HLD Past Surgical History: left arm fistula Social History: Denies ETOH, smoking, and drug use. Allergies: Codeine and Lisinopril HPI: Poor Historian. 59-year-old female status post mechanical injury from slip and fall at home without any head or neck injury. No loss of consciousness. Patient complains of left wrist pain and bruise and left elbow pain. Patient has full range of motion of the affected extremity. Focal tenderness to palpation on the dorsum side of the wrist with minimal contusion. Patient is neurovascularly intact in bilateral upper extremities. Full range of motion. Sensory and motor are present. Radial pulses are palpable bilaterally. Good gas charger muscle bilaterally. REVIEW OF SYSTEMS: CONSTITUTIONAL: Denies acute: fever, diaphoresis, chills, generalized weakness. HEAD: Denies acute: headache, photophobia Eyes: Denies acute: Double vision, vision loss, eye pain, eye discharge. EARS: Denies acute: tinnitus, hearing loss, ear discharge, ear pain, THROAT: Denies acute: sore throat, swelling, difficulty swallowing , pain with swallowing, change in voice. NECK: Denies acute: neck pain, neck swelling, stiff neck. HEART: Denies acute : chest pain, palpitations, LUNGS: Denies acute: SOB, wheezing, cough, hemoptysis ABDOMEN: Denies acute: abdominal pain, Nausea, Vomiting, diarrhea, melena , hematemesis, hematochezia SKIN: Denies acute: rash, redness, lesions, itchiness. EXTREMITIES: Denies acute: calf pain, numbness, tingling, weakness, Denies acute: Low back pain. Neuro: Denies acute: focal neurological deficit, motor or sensory focal neurological deficit, tremors, seizure like activity, confusion, dizziness, change in mental status, loss of bowel or bladder function, cauda equina like symptoms. : Denies acute: dysuria, hematuria, flank pain, increase in urinary frequency. PSYCH: Denies acute: hallucination, suicidal ideation, homicidal ideation. FEMALE: Denies acute: abnormal vaginal bleeding, foul odor, unusual discharge. PHYSICAL EXAM: General: ----no----acute distress, awake and alert. Head: normocephalic, atraumatic. Neck: supple, trachea is midline, no swelling. Throat: Normal phonation. Eyes:, no erythema, no purulent discharge, no proptosis, no icterus. Heart: regular rate, regular rhythm, no significant murmur appreciated. Lungs: no apparent respiratory distress, Able to speak in full sentences. No wheezing, no rhonchi, no crackles. No stridors Clear to auscultation bilaterally. Abdomen: non tender to palpation, non distended, soft, no guarding, no rebound, + bowel sounds. Neuro: Awake, Alert, oriented to name, self, situation, follows commands GCS=15. Speech is normal. Skin: no petechia, no purpura, no cyanosis, non-pale, not jaundice. Lower extremities: --2/4 b/l - Pitting edema no deformity, no focal swelling, no calf TTP. Makes eye contact. moves all four extremities. Face: no apparent facial droop. Evaluation of bilateral elbows: No deformity, no swelling, no crepitus, no erythema. Full range of motion of bilateral elbows. Ambulating in the ED independently. ED COURSE: DISCLAIMER: This medical document was created using an electronic medical record system with voice recognition software and computerized dictation system. Although this document has been carefully reviewed, there might still be some phonetic and typographical errors. Occasional wrong-word or "sound-alike" substitutions may have occurred due to the inherent limitations of voice recognition software. These areas are purely typographical due to imperfections of the software programs and do not reflect any compromise in the patient's medical care. Please read the chart carefully and recognize, using context, where these substitutions have occurred. Chief Complaint: Upper Extremity Time Seen by MD: 16:05 Primary Care Provider: MARCO ANTONIO Reviewed notes: Allergies Allergies: Coded Allergies: Codeine (Verified Allergy, Unknown, 12/22/21) Lisinopril (Verified Allergy, Unknown, 10/13/18) Home Meds Active Scripts Hydralazine Hcl (Hydralazine Hcl) 50 Mg Tab, 1 TAB PO TID, #90 TAB 5 Refills Prov:MAX BETANCOURT MD 09/30/24 Carvedilol (COREG) 12.5 Mg Tab, 12.5 MG PO Q12HR for 30 Days, #60 TAB Prov:MAX BETANCOURT MD 09/30/24 Losartan Potassium (Losartan Potassium) 100 Mg Tab, 1 TAB PO DAILY for 30 Days, #30 TAB 5 Refills Prov:MAX BETANCOURT MD 09/30/24 Calcium Carbonate (Calcium Carbonate) 500 Mg Chw, 500 MG PO BID for 30 Days, #60 TAB.CHEW Prov:JOE CORRAL MD 11/13/21 Reported Medications Zolpidem Tartrate (Zolpidem Tartrate) 5 Mg Tab, 1 TAB PO QPM, #30 TAB 2 Refills 12/24/21 Gabapentin (Neurontin) 300 Mg Cap, 1 CAP PO BID, #90 CAP 3 Refills 12/24/21 Hydrochlorothiazide (Hydrochlorothiazide) 25 Mg Tab, 25 MG PO DAILY for 30 Days, MG 12/24/21 Tramadol Hcl (Tramadol Hcl) 50 Mg Tab, 50 MG PO DAILY PRN for MODERATE PAIN (4-6 PAIN SCALE), MG 12/24/21 Lovastatin (Lovastatin) 20 Mg Tab, 1 TAB PO DAILY, #30 TAB 5 Refills 12/24/21 Information Source: Patient Mode of Arrival: Ambulatory Past Medical History PAST MEDICAL HISTORY: CKF, DM, High Lipids, HTN Surgical History: , Tonsillectomy COST REDUCTION ENGINEER 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 Was a procedure done?: No Differential Diagnosis Multiple Trauma: Fractures, Contusion, Other (sprain, strain, dislocation ) X-Ray, Labs, Meds, VS Vital Signs Date Time Temp Pulse Resp B/P (MAP) Pulse Ox O2 Delivery O2 Flow Rate FiO2 11/11/24 12:43 98.6 80 18 121/58 96 98.6 [place] [address] Ph: [phone] DIAGNOSTIC IMAGING Diagnostic Imaging Report : [id number] Signed PATIENT: CARLOS LANGLEY ACCT: [id number] UNIT: [id number] : 1965 LOC: ER ROOM / BED: / AGE / SEX: 59 / F ADM STATUS: REG ER SERVICE 12 ORDERING PHYSICIAN: MIRNA SEAY DO PROCEDURE(s): LWRI - L WRIST 3+ VIEW XRAY REASON: fall injury ORDER NUMBER(s): [id number], ACCESSION NUMBER(s): [id number] CLINICAL INDICATION: fall injury TECHNIQUE: 3 radiographic views of the left wrist were obtained. Comparison: None FINDINGS/IMPRESSION: Bony alignment is normal No fracture or dislocation Thin curvilinear calcification in the soft tissues adjacent to the styloid proce ss of the distal radius. May represent vascular calcifications from the radial artery or small avulsion fracture off the distal radius no prior studies for comparison. ATED BY: LIZZIE STEVE Jr., DO DICTATED DATE/TIME: 11/11/241449 SIGNED BY: LIZZIE STEVE Jr., DO SIGNED DATE/TIME: 11/11/241449 CC: [address] [address] Ph: [phone] DIAGNOSTIC IMAGING Diagnostic Imaging Report : [id number] Signed PATIENT: CARLOS LANGLEY ACCT: [id number] UNIT: [id number] : 1965 LOC: ER ROOM / BED: / AGE / SEX: 59 / F ADM STATUS: REG ER SERVICE 12 ORDERING PHYSICIAN: MIRNA SEAY DO PROCEDURE(s): RELB3 - R ELBOW 3 VIEW XRAY REASON: fall injury ORDER NUMBER(s): [id number], ACCESSION NUMBER(s): [id number] CLINICAL INDICATION: fall injury TECHNIQUE: 3 radiographic views of the right elbow were obtained. Comparison: None FINDINGS/IMPRESSION: Normal bony alignment Small joint effusion. No dislocation. ATED BY: LIZZIE STEVE Jr., DO DICTATED DATE/TIME: 11/11/241446 SIGNED BY: LIZZIE STEVE Jr., SIGNED DATE/TIME: 11/11/241446 CC: Time of 1ST Reevaluation: 16:22 Reevaluation 1ST: Unchanged Patient Education/Counseling: Diagnosis, Treatment Family Education/Counseling: No Family Present Departure 1 Departure Time of Disposition: 16:41 Impression: Primary Impression: Fall Additional Impressions: Left wrist pain Left elbow pain Disposition: 01 HOME / SELF CARE / HOMELESS Condition: Stable Additional Instructions: Additional instructions: Please read all instructions provided in this packet carefully. You MUST follow-up with your primary care/family doctor in 1 to 2 days. If you are unable to see your primary care/family doctor, please return to our emergency room for re-assessment and re-evaluation in 1 to 2 days. Return to the emergency room here in our facility or to the nearest ER [facility] if your symptoms change or worsen. CONSULTATIONS: you MUST Follow-up for consultation as soon as possible with: orthopedic doctor in 1-2 days. Please call for appointment. You MUST call the consultants office yourself to make an appointment. You may need to arrange that through your insurance and/or your primary/family doctor. If you are unable to see the crop consultant in 1 to 2 days, you must return to our emergency room (or any other ER of your choice) for re-assessment and re- evaluation. Adequate fluid hydration. Although you have been discharged from the Emergency Department, this does not mean that you have a "clean bill of health". No definitive diagnosis for your symptoms has been made today. It is possible that you are in the process of developing a serious illness. This is why you must return to the ED without fail if any new or worsening symptoms develop. Below is a copy of your radiological report for follow up: [address] [address] Ph: [phone] DIAGNOSTIC IMAGING Diagnostic Imaging Report : [id number] Signed PATIENT: CARLOS LANGLEY ACCT: [id number] UNIT: [id number] : 1965 LOC: ER ROOM / BED: / AGE / SEX: 59 / F ADM STATUS: REG ER SERVICE 1413 ORDERING PHYSICIAN: MIRNA SEAY DO PROCEDURE(s): LWRI - L WRIST 3+ VIEW XRAY REASON: fall injury ORDER NUMBER(s): [id number], ACCESSION NUMBER(s): [id number] CLINICAL INDICATION: fall injury TECHNIQUE: 3 radiographic views of the left wrist were obtained. Comparison: None FINDINGS/IMPRESSION: Bony alignment is normal No fracture or dislocation Thin curvilinear calcification in the soft tissues adjacent to the styloid process of the distal radius. May represent vascular calcifications from the radial artery or small avulsion fracture off the distal radius no prior studies for comparison. ATED BY: LIZZIE STEVE Jr., DO DICTATED DATE/TIME: 11/11/241449 SIGNED BY: LIZZIE STEVE Jr., SIGNED DATE/TIME: 11/11/241449 CC: [address] [address] Ph: [phone] DIAGNOSTIC IMAGING Diagnostic Imaging Report : [id number] Signed PATIENT: CARLOS LANGLEY ACCT: [id number] UNIT: [id number] : 1965 LOC: ER ROOM / BED: / AGE / SEX: 59 / F ADM STATUS: REG ER SERVICE 1413 ORDERING PHYSICIAN: MIRNA SEAY DO PROCEDURE(s): RELB3 - R ELBOW 3 VIEW XRAY REASON: fall injury ORDER NUMBER(s): [id number], ACCESSION NUMBER(s): [id number] CLINICAL INDICATION: fall injury TECHNIQUE: 3 radiographic views of the right elbow were obtained. Comparison: None FINDINGS/IMPRESSION: Normal bony alignment Small joint effusion. No dislocation. ATED BY: LIZZIE STEVE Jr., DO DICTATED DATE/TIME: 11/11/241446 SIGNED BY: LIZZIE STEVE Jr., SIGNED DATE/TIME: 11/11/241446 CC: Discharged With: Self Critical Care Note Critical Care Time?: No I personally scribed for MIRNA SEAY DO ([email or web address]) on 11/11/24 at 16:18. Electronically submitted by Jadyn Aguiar ([facility]). I personally scribed for MIRNA SEAY DO ([email or web address]) on 11/11/24 at 16:28. Electronically submitted by Jadyn Aguiar ([facility]). MIRNA SEAY DO Nov 11, 2024 16:18
[2024-11-11 18:02] VITALS: BP 145/66; PULSE 88; RESP 20; TEMP 98; O2SAT 99
== END 2024-11-11 18:10 | disposition home or self-care (01) ==
LOC: ER 12:44
DX: S60.212A Contusion of left wrist, initial encounter (principal); M25.521 Pain in right elbow; M25.532 Pain in left wrist; E78.5 Hyperlipidemia, unspecified; F10.90 Alcohol use, unspecified, uncomplicated; I12.0 Hypertensive chronic kidney disease with stage 5 chronic kidney disease or end stage renal disease; E11.22 Type 2 diabetes mellitus with diabetic chronic kidney disease; N18.6 End stage renal disease; Z99.2 Dependence on renal dialysis; Z90.89 Acquired absence of other organs; Z88.8 Allergy status to other drugs, medicaments and biological substances; Z82.49 Family history of ischemic heart disease and other diseases of the circulatory system; Z79.899 Other long term (current) drug therapy; Z88.5 Allergy status to narcotic agent; W01.0XXA Fall on same level from slipping, tripping and stumbling without subsequent striking against object, initial encounter; Y93.89 Activity, other specified; Y92.89 Other specified places as the place of occurrence of the external cause; Y99.8 Other external cause status
CPT/HCPCS: 73080; 73110